=== PATIENT | female | born 2000 | race Two or more races ===

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

== ENCOUNTER 2020-02-29 12:26 | Emergency (ER) | payer SELFPAY ==
[~2020-02-29] VITALS: Ht 162.6 cm; Wt 68.0 kg
[~2020-02-29 12:26] MED LIST changes: +DICY20TA3 PO; +FAMO-63 PO
[2020-02-29 12:33] VITALS: BP 135/89
--- NOTE | 2020-02-29 12:43 | PHYS DOC ---
Past Medical History Past Medical History: No Pertinent History, UTI Past Surgical History: Other Additional Past Surgical Histo: Hernia repair Smoking Status: Never Smoker Alcohol Use: None Drug Use: None General Adult EDM: Chief Complaint: SORE THROAT HPI: HPI: 19-year-old female presents to the emergency department secondary to a scratchy throat. She states that she has a little bit of pain deep in her throat when she swallows. She denies any fever chills or sweats. She is not had any rash. She denies any other upper respiratory symptoms such as a cough. [] Review of Systems: Review of Systems: Constitutional: Denies fever or chills. [] Eyes: Denies change in visual acuity. [] HENT: Per HPI [] Respiratory: Denies cough or shortness of breath. [] Psychiatric: Anxiety [] Heart Score: Risk Factors: Risk Factors: DM, Current or recent (<one month) smoker, HTN, HLP, family history of CAD, obesity. Risk Scores: Score 0 - 3: 2.5% MACE over next 6 weeks - Discharge Home Score 4 - 6: 20.3% MACE over next 6 weeks - Admit for Clinical Observation Score 7 - 10: 72.7% MACE over next 6 weeks - Early Invasive Strategies Allergies: Allergies: Allergies Coded Allergies Type Severity Reaction Last Updated Verified No Known Drug Allergies 02/27/19 No Physical Exam: PE: Constitutional: Well developed, well nourished, no acute distress, non-toxic appearance. [] HENT: Normocephalic, atraumatic, bilateral external ears normal, oropharynx moist, no oral exudates, nose normal. [] Eyes: PERRLA, EOMI, conjunctiva normal, no discharge. [] Neck: Normal range of motion, no tenderness, supple, no stridor. [] Psychologic: Anxious. [] Current Patient Data: Vital Signs: Vital Signs Date Time Temp Pulse Resp B/P (MAP) Pulse Ox O2 Delivery O2 Flow Rate FiO2 02/29/20 12:33 98.4 78 16 135/89 (104) 98 Room Air 98.4 EKG: EKG: [] Radiology/Procedures: Radiology/Procedures: [] Course & Med Decision Making: Course & Med Decision Making Pertinent Labs and Imaging studies reviewed. (See chart for details) [] Dragon Disclaimer: Dragon Disclaimer: This electronic medical record was generated, in whole or in part, using a voice recognition dictation system. Departure Departure Impression: Primary Impression: Sore throat Disposition: 01 HOME, SELF-CARE Condition: STABLE Referrals: CADE RANDLE MD (PCP) Patient Instructions: Sore Throat Additional Instructions: Return to the emergency department with any new or concerning symptoms JALIL HOLLAND DO February 29, 2020 12:43
== END 2020-02-29 12:47 | disposition home or self-care (01) ==
LOC: ER 12:26
DX: J02.9 Acute pharyngitis, unspecified (principal); Z98.890 Other specified postprocedural states
CPT/HCPCS: 99281

== ENCOUNTER 2021-01-02 18:46 | Observation (INO) | payer MEDICAID ==
[2021-01-02 19:27] LABS: BILIRUBIN,URINE NEGATIVE (NEG); CLARITY,URINE CLEAR; COLOR,URINE YELLOW; NITRITE,URINE NEGATIVE (NEG); PROTEIN,URINE 30 mg/dL (NEG-TRACE); UROBILINOGEN,URINE 0.2 mg/dL (0.2 mg/dL)
[2021-01-02 19:32] LABS: BARBITURATES NEG (NEG); BENZODIAZEPINES NEG (NEG); CANNABINOIDS NEG (NEG); COCAINE NEG (NEG); METHADONE NEG (NEG); OPIATES NEG (NEG); PHENCYCLIDINE NEG (NEG)
[2021-01-02 19:34] LABS: AMPHETAMINE/METHAMPHETAMINE NEG (NEG); BACTERIA,URINE MANY /HPF (0-FEW)
[2021-01-02 19:35] LABS: RBC,URINE 0 /HPF (0-2); WBC,URINE OCC /HPF (0-4)
[2021-01-02] MEDS: ONDANSETRON ODT 4 MG TAB.RAPDIS. PO PRN (21:52)
[2021-01-02 22:00] LABS: BASO % 0 % (0-3); EOS % 0 % (0-3); HEMOGLOBIN 12.4 g/dL (12.0-15.5); LYMPH # 1.2 x10^3/uL (1.0-4.8); LYMPH % 11 % (24-48); MEAN CORPUSCULAR HEMOGLOBIN 32 pg (25-35); MEAN CORPUSCULAR HGB CONC 35 g/dL (31-37); MEAN CORPUSCULAR VOLUME 91 fL (79-100); MONO # 0.4 x10^3/uL (0.0-1.1); MONO % 4 % (0-9); NEUT # 9.4 x10^3/uL (1.8-7.7); NEUT % 85 % (31-73); PLATELET COUNT 321 x10^3/uL (140-400); RED BLOOD COUNT 3.94 x10^6/uL (3.50-5.40); RED CELL DISTRIBUTION WIDTH 11.9 % (11.5-14.5); WHITE BLOOD COUNT 11.1 x10^3/uL (4.0-11.0)
[2021-01-02 22:08] LABS: CALCIUM 8.6 mg/dL (8.5-10.1); CREATININE 0.4 mg/dL (0.6-1.0); GFR 203.5; POTASSIUM 3.3 mmol/L (3.5-5.1)
[2021-01-02 22:13] LABS: ALBUMIN 3.3 g/dL (3.4-5.0); ALBUMIN/GLOBULIN RATIO 0.8 (1.0-1.7); TOTAL BILIRUBIN 0.4 mg/dL (0.2-1.0); TOTAL PROTEIN 7.5 g/dL (6.4-8.2)
[2021-01-03] MEDS: IV RINGERS,LACTATED 1000ML 1,000 ML IV PRN ×2 (04:05→06:20)
[2021-01-03 04:26] LABS: BASO % 0 % (0-3); EOS % 0 % (0-3); HEMATOCRIT 32.5 % (36.0-47.0); HEMOGLOBIN 11.5 g/dL (12.0-15.5); LYMPH # 1.8 x10^3/uL (1.0-4.8); LYMPH % 19 % (24-48); MEAN CORPUSCULAR HEMOGLOBIN 33 pg (25-35); MEAN CORPUSCULAR HGB CONC 36 g/dL (31-37); MEAN CORPUSCULAR VOLUME 92 fL (79-100); MONO # 0.8 x10^3/uL (0.0-1.1); MONO % 8 % (0-9); NEUT # 6.6 x10^3/uL (1.8-7.7); NEUT % 72 % (31-73); PLATELET COUNT 273 x10^3/uL (140-400); RED BLOOD COUNT 3.55 x10^6/uL (3.50-5.40); WHITE BLOOD COUNT 9.1 x10^3/uL (4.0-11.0)
[2021-01-03 04:36] LABS: ALBUMIN 2.7 g/dL (3.4-5.0); ALBUMIN/GLOBULIN RATIO 0.7 (1.0-1.7); CALCIUM 8.1 mg/dL (8.5-10.1); CREATININE 0.5 mg/dL (0.6-1.0); GFR 157.3; POTASSIUM 3.5 mmol/L (3.5-5.1); TOTAL BILIRUBIN 0.4 mg/dL (0.2-1.0); TOTAL PROTEIN 6.5 g/dL (6.4-8.2)
[2021-01-03] MEDS: ONDANSETRON ODT 4 MG TAB.RAPDIS. PO PRN (06:20)
== END 2021-01-03 08:00 | disposition home or self-care (01) ==
LOC: 3 SO LND 18:46
PROVIDERS: ADMIT Family Medicine; ATTEND Family Medicine
DX: O21.2 Late vomiting of pregnancy (principal); Z3A.23 23 weeks gestation of pregnancy; Z79.899 Other long term (current) drug therapy
CPT/HCPCS: 36415; 80053; 80307; 81001; 85025; 87086; 96360; 96361; G0378; G0379; J3480; J7120

== ENCOUNTER 2021-01-04 13:21 | Observation (INO) | payer MEDICAID ==
[~2021-01-04] VITALS: Ht 160 cm; Wt 60.3 kg
[2021-01-04 14:00] VITALS: BP 129/78
[2021-01-04 14:27] LABS: BILIRUBIN,URINE SMALL (NEG); CLARITY,URINE CLEAR; NITRITE,URINE NEGATIVE (NEG); PH,URINE 6.5 (<5.0-8.0); PROTEIN,URINE NEGATIVE (NEG-TRACE)
[2021-01-04 14:39] LABS: BACTERIA,URINE MANY /HPF (0-FEW); COLOR,URINE DK YELLOW
[2021-01-04 14:41] LABS: RBC,URINE 0 /HPF (0-2)
--- NOTE | 2021-01-04 15:01 | RAD ---
Obstetric ultrasound limited: Reason for examination: Vomiting over the weekend and now complaining of abdominal pain. 23.5 weeks g estational age. Single viable intrauterine gestation is present with cardiac activity with a rate of 152 bpm. m otion was present. Adequate amniotic fluid is present with amniotic fluid index of 11.3 cm. Placenta is fundal. Fetus is in cephalic presentation. Maternal cervix is 4.2 cm in length and appears to be c losed. Maternal adnexa are not optimally visualized. No gross abnormality seen at the pedal bladder o r kidneys. Biparietal diameter 6 cm corresponding to gestational age of 24 weeks 3 days. Head circumference is 22.07 cm corresponding to gestational age of 24 weeks 1 day. Abdominal circumference is 20.84 cm corresponding to gestational age of 25 weeks 3 days. Femur length is 4.67 cm corresponding to gestational age of 25 weeks 4 days. Estimated weight is 790 g or approximately 1 lb. 12 oz. Gestational age by ultrasound is 24 weeks 6 days with estimated date of confinement of 04/20/2021. IMPRESSION: Single viable intrauterine gestation with a mean gestational age estimated at 24 weeks 6 days with es timated date of confinement of 04/20/2021. This is approximately 8 days larger than gestational age by last menstrual period. Electronically signed by: Oralia Chandler MD (01/04/2021 2:58 PM) [facility]
[2021-01-04 16:35] LABS: POTASSIUM 2.9 mmol/L (3.5-5.1)
[2021-01-04] MEDS: ONDANSETRON ODT 4 MG TAB.RAPDIS. PO PRN ×2 (17:25→23:51)
[2021-01-04] MEDS ORDERED: SODIUM CHLORIDE IV SCH (17:30)
[2021-01-04] MEDS ORDERED: POTASSIUM CHLORIDE 20 MEQ IV SCH (17:30)
[2021-01-04] MEDS ORDERED: POTASSIUM CHLORIDE IV ONE (17:30)
[2021-01-04] MEDS ORDERED: SODIUM CHLORIDE IV ONE (17:30)
[2021-01-04] MEDS ORDERED: DEXTROSE IV SCH (17:30)
[2021-01-04] MEDS ORDERED: DEXTROSE 5% IV ONE (17:30)
[2021-01-04 18:55] VITALS: BP 99/59
[2021-01-04 22:24] LABS: MAGNESIUM 1.9 mg/dL (1.8-2.4); POTASSIUM 3.2 mmol/L (3.5-5.1)
[2021-01-05] MEDS ORDERED: PANTOPRAZOLE 40 MG TABLET.DR. PO ONE (00:15)
[2021-01-05] MEDS ORDERED: POTASSIUM CHLORIDE IV ONE (00:30)
[2021-01-05] MEDS ORDERED: SODIUM CHLORIDE IV ONE (00:30)
[2021-01-05] MEDS ORDERED: DEXTROSE 5% IV ONE (00:30)
[2021-01-05] MEDS ORDERED: cefTRIAXone IV Push 1 GM VIAL. IVP ONE (01:30)
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
[2021-01-05] MEDS: IV RINGERS,LACTATED 1000ML 1,000 ML IV SCH ×2 (02:02→12:14)
--- NOTE | 2021-01-05 02:13 | PDOC1 ---
History and Physical Date of Admission Date of Admission DATE: 01/05/21 TIME: 01:48 Identification/Chief Complaint Chief Complaint Severe left lower quadrant pelvic pain thrughout the night Monday to Monday. Admittied for this problem, along with persistent nausea. Source Source: Patient History of Present Illness History of Present Illness See OB history Current Medications Current Medications Current Medications Ringer's Solution 1,000 ml @ 125 mls/hr Q8H IV ; Start 01/04/21 at 13:45 Potassium Chloride/Dextrose/ Sod Cl 500 ml @ 150 mls/hr Q3H20M IV ; Start 01/04/21 at 17:30; Status Cancel Ondansetron HCl (Zofran Odt) 8 mg PRN Q6HRS PRN PO NAUSEA/VOMITING Last administered on 01/04/21at 23:51; Start 01/04/21 at 16:45 Sodium Chloride 77 meq/Potassium Chloride 20 meq/ Dextrose 529.25 ml @ 150 mls/ hr Q3H32M ONCE IV Last administered on 01/04/21at 17:54; Start 01/04/21 at 17:30; Stop 01/04/21 at 21:01; Status DC Sodium Chloride 77 meq/Potassium Chloride 20 meq/ Dextrose 529.25 ml @ 200 mls/ hr Q2H39M ONCE IV Last administered on 01/05/21at 00:37; Start 01/05/21 at 00:30; Stop 01/05/21 at 03:08 Pantoprazole Sodium (Protonix) 40 mg DAILYAC PO ; Start 01/05/21 at 07:30 Pantoprazole Sodium (Protonix) 40 mg 1X ONCE PO Last administered on 01/05/21at 00:36; Start 01/05/21 at 00:15; Stop 01/05/21 at 00:20; Status DC Active Scripts Active Pepcid (Famotidine) 20 Mg Tablet 20 Mg PO BID 15 Days Dicyclomine Hcl 20 Mg Tablet 1 Tab PO QID 15 Days Zofran (Ondansetron Hcl) 4 Mg Tablet 1 Tab PO Q6HRS Cephalexin 500 Mg Tablet 1 Tab PO BID Ibuprofen 400 Mg Tablet 400 Mg PO PRN Q6HRS PRN Allergies Allergies: Coded Allergies: No Known Drug Allergies (Unverified , 02/27/19) Vitals Vitals Stable, patient afebrile. Labs Labs Laboratory Tests Test 01/04/21 14:20 01/04/21 15:18 01/04/21 17:23 01/04/21 22:08 Urine Collection Type Unknown Urine Color Dk yellow Urine Clarity Clear Urine pH 6.5 (<5.0-8.0) Urine Specific [place] 1.020 (1.000-1.030) Urine Protein Negative mg/dL (NEG-TRACE) Urine Glucose (UA) Negative mg/dL (NEG) Urine Ketones (Stick) >=80 mg/dL (NEG) Urine Blood Negative (NEG) Urine Nitrite Negative (NEG) Urine Bilirubin Small (NEG) Urine Urobilinogen Dipstick 1.0 mg/dL (0.2 mg/dL) Urine Leukocyte Esterase Small (NEG) Urine RBC 0 /HPF (0-2) Urine WBC 1-4 /HPF (0-4) Urine Squamous Epithelial Cells Many /LPF Urine Bacteria Many /HPF (0-FEW) Urine Mucus Marked /LPF Sodium Level 137 mmol/L (136-145) Potassium Level 2.9 mmol/L (3.5-5.1) 3.2 mmol/L (3.5-5.1) Chloride Level 102 mmol/L (98-107) Carbon Dioxide Level 22 mmol/L (21-32) Anion Gap 13 (6-14) Glucose (Fingerstick) 84 mg/dL (70-99) Magnesium Level 1.9 mg/dL (1.8-2.4) Laboratory Tests Test 01/04/21 14:20 01/04/21 15:18 01/04/21 17:23 01/04/21 22:08 Urine Collection Type Unknown Urine Color Dk yellow Urine Clarity Clear Urine pH 6.5 (<5.0-8.0) Urine Specific Post 1.020 (1.000-1.030) Urine Protein Negative mg/dL (NEG-TRACE) Urine Glucose (UA) Negative mg/dL (NEG) Urine Ketones (Stick) >=80 mg/dL (NEG) Urine Blood Negative (NEG) Urine Nitrite Negative (NEG) Urine Bilirubin Small (NEG) Urine Urobilinogen Dipstick 1.0 mg/dL (0.2 mg/dL) Urine Leukocyte Esterase Small (NEG) Urine RBC 0 /HPF (0-2) Urine WBC 1-4 /HPF (0-4) Urine Squamous Epithelial Cells Many /LPF Urine Bacteria Many /HPF (0-FEW) Urine Mucus Marked /LPF Sodium Level 137 mmol/L (136-145) Potassium Level 2.9 mmol/L (3.5-5.1) 3.2 mmol/L (3.5-5.1) Chloride Level 102 mmol/L (98-107) Carbon Dioxide Level 22 mmol/L (21-32) Anion Gap 13 (6-14) Glucose (Fingerstick) 84 mg/dL (70-99) Magnesium Level 1.9 mg/dL (1.8-2.4) Images Images US of uterus reveals viable 24 week fetus with good heart tones and fluid.- Single viable intrauterine gestation with a mean gestational age estimated at 24 weeks 6 days with estimated date of confinement of 04/20/2021. Placenta is fundal and healthy in appearance. VTE Prophylaxis Ordered VTE Prophylaxis Devices: Yes VTE Pharmacological Prophylaxi: No Assessment/Plan Assessment/Plan 1. IUP in second trimester EGA about 24 weeks. 2. Hypokalemia probably causing the severe lower abdominal pain due to muscle cramp- now resolved with improved potassium.3.persistent nausea and vomiting/hyperemesis most likely the cause fo the hypokalemia.4. She now has leucocytes on her UA, many bacteria but neg nitrates.- this may be early bladder infection causing the increased nausea and vomiting. Plan: 1. Rocephin one gram ordered pending urine culture. 2. Iv hydration and IV potassium supplement infusing. 3. Will recheck electrolytes. Continue Zofran and IV fluids. If she remains stable throughout the night she may be discharged to her mother's home for 3-4 days. She is to see me in office in one week. CADE RANDLE MD Jan 05, 2021 02:13
[2021-01-05] MEDS: ONDANSETRON ODT 4 MG TAB.RAPDIS. PO PRN ×2 (05:55→11:44)
[2021-01-05] MEDS ORDERED: PANTOPRAZOLE 40 MG TABLET.DR. PO SCH (07:30)
[2021-01-05] MEDS ORDERED: ACETAMINOPHEN 325 MG TABLET. PO PRN (12:30)
[2021-01-05 13:20] VITALS: BP 117/61
== END 2021-01-05 14:10 | disposition home or self-care (01) ==
LOC: 3 SO LND 13:21
PROVIDERS: ADMIT Family Medicine; ATTEND Family Medicine
DX: O21.2 Late vomiting of pregnancy (principal); O26.892 Other specified pregnancy related conditions, second trimester; E87.6 Hypokalemia; R10.32 Left lower quadrant pain; Z3A.24 24 weeks gestation of pregnancy
CPT/HCPCS: 36415; 76815; 80051; 81001; 82962; 83735; 84132; 87086; 96361; 96365; 96366; 96375; G0378; G0379; J0696; J3480; J7060; J7120

== ENCOUNTER 2021-01-05 21:19 | Observation (INO) | payer MEDICAID ==
[2021-01-05 13:20] VITALS: BP 117/61
[2021-01-05] MEDS ORDERED: IV RINGERS,LACTATED 1000ML 1,000 ML IV SCH (21:30)
[2021-01-05 21:54] LABS: BILIRUBIN,URINE NEGATIVE (NEG); CLARITY,URINE CLEAR; COLOR,URINE YELLOW; NITRITE,URINE NEGATIVE (NEG); PH,URINE 7.5 (<5.0-8.0); PROTEIN,URINE NEGATIVE (NEG-TRACE)
[2021-01-05 22:02] LABS: BARBITURATES NEG (NEG); BENZODIAZEPINES NEG (NEG); CANNABINOIDS NEG (NEG); COCAINE NEG (NEG); METHADONE NEG (NEG); OPIATES NEG (NEG); PHENCYCLIDINE NEG (NEG); RBC,URINE 0 /HPF (0-2)
[2021-01-05 22:03] LABS: AMPHETAMINE/METHAMPHETAMINE NEG (NEG); BACTERIA,URINE FEW /HPF (0-FEW)
== END 2021-01-05 23:48 | disposition home or self-care (01) ==
LOC: 3 SO LND 21:19
PROVIDERS: ADMIT Family Medicine; ATTEND Family Medicine
DX: O26.892 Other specified pregnancy related conditions, second trimester (principal); R10.12 Left upper quadrant pain; R10.32 Left lower quadrant pain; R42 Dizziness and giddiness; Z79.899 Other long term (current) drug therapy; Z3A.23 23 weeks gestation of pregnancy; Y04.0XXA Assault by unarmed brawl or fight, initial encounter; Y93.89 Activity, other specified; Y92.89 Other specified places as the place of occurrence of the external cause; Y99.8 Other external cause status
CPT/HCPCS: 59025; 80307; 81001; 87086; G0378; G0379

== ENCOUNTER 2021-01-05 23:50 | Emergency (ER) | payer MEDICAID ==
[~2021-01-05] VITALS: Ht 160 cm; Wt 63.6 kg
--- NOTE | 2021-01-06 01:04 | RAD ---
OB ULTRASOUND, LIMITED Clinical Indication: Reason: KICKED TO [facility] Comparison: None. Technique: Multiple grayscale images, color Doppler, and M-mode images of the uterus are obtained. Findings: There is a single intrauterine gestation in vertex presentation. The placenta is anterior and fundal in location without evidence of placenta previa. The amount of amniotic fluid appears appropriate. A mniotic fluid index is 13.1 cm. Cervix is not visualized. Biometrical data: BPD = 6.2 cm for 25 weeks 2 days. HC = 22.5 cm for 24 weeks 4 days. AC = 21.1 cm for 25 weeks 4 days. FL = 4.5 cm for 25 weeks 0 days. HC/AC ratio = 1.07. Overall, the estimated sonographic gestational age is 25 weeks and 1 day for an estimated date of del shahana of April 20, 2021. The estimated date of delivery provided by the last menstrual period is April 28, 2021. Estimated weight is 791 +/- 117 grams. The estimated heart rate is 145 beats per minute. A complete anatomic survey is not performed. The maternal ovaries are not identified in the adn exa due to overlying bowel gas. Impression: 1. Single live intrauterine gestation with estimated sonographic gestational age of 25 weeks and 1 d ay. 2. Amniotic fluid index is normal. Electronically signed by: Delroy Fuller MD (01/06/2021 1:01 AM) [facility]
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
[2021-01-06 01:36] VITALS: BP 130/60
== END 2021-01-06 01:50 | disposition home or self-care (01) ==
LOC: ER 23:50
DX: O26.892 Other specified pregnancy related conditions, second trimester (principal); F19.10 Other psychoactive substance abuse, uncomplicated; R10.32 Left lower quadrant pain; Z98.890 Other specified postprocedural states; Z3A.25 25 weeks gestation of pregnancy
CPT/HCPCS: 76815; 99285

== ENCOUNTER 2021-03-09 10:28 | Observation (INO) | payer MEDICAID ==
[2021-03-09 11:15] LABS: BILIRUBIN,URINE NEGATIVE (NEG); CLARITY,URINE CLEAR; COLOR,URINE YELLOW; NITRITE,URINE NEGATIVE (NEG); PH,URINE 7.5 (<5.0-8.0); PROTEIN,URINE NEGATIVE (NEG-TRACE); UROBILINOGEN,URINE 0.2 mg/dL (0.2 mg/dL)
[2021-03-09 11:23] LABS: RBC,URINE OCC /HPF (0-2)
[2021-03-09 11:24] LABS: BACTERIA,URINE FEW /HPF (0-FEW)
[2021-03-09 11:45] VITALS: BP 124/85
[2021-03-09] MEDS ORDERED: TERBUTALINE 1 MG/ML VIAL. SQ ONE (11:45)
[2021-03-09] MEDS: IV RINGERS,LACTATED 1000ML 1,000 ML IV PRN ×2 (11:59→18:08)
--- NOTE | 2021-03-09 18:40 | RAD ---
STUDY: Complete renal sonogram INDICATION: Right-sided pain. 33 weeks . COMPARISON: None. TECHNIQUE: Real-time grayscale and color Doppler sonographic evaluation of both kidneys. The bladder was also evaluated. FINDINGS: Right kidney: The right kidney measures 10.8 cm in length. Cortical thickness and echogenicity is wit hin normal limits. Mild hydronephrosis with the renal pelvis distended at up to 2.2 cm. No nephrolith iasis is identified noting that the entirety of the ureter is not able to be visualized. Left kidney: Measures 12.5 cm in length. Cortical thickness and echogenicity is within normal limits. No significant hydronephrosis with the renal pelvis measuring 1.6 cm. Bladder: Not evaluated. Miscellaneous: None. IMPRESSION: 1. Mild hydronephrosis on the right. No obstructing stone is identified. No significant intrarenal c ollecting system dilatation on the left. 2. Unremarkable renal parenchyma. Electronically signed by: TYESHA BOWDEN MD (03/09/2021 6:37 PM) [facility]
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
--- NOTE | 2021-03-09 19:41 | PDOC3 ---
OB DISCHARGE SUMMARY DATE OF ADMISSION: 03/09/2021 DATE OF DISCHARGE: 03/09/2021 REASON FOR ADMISSION: Observation/evaluation (for abdominal pain with initiall contractions, but then major concern was the right sided back pain. labor ruled out.) PROCEDURES: Ultrasound (see OB history) PROBLEM LIST AT DISCHARGE 1. Right flank pain and right abdominal pain. 2. right kidney hydronephrosis. DISCHARGE DIAGNOSIS: Others (1. right kidney hydronephrosis. 2. right flank p ain and right abdominal pain. 3. Mikey Miller) HOSPITAL COURSE Patient was monitored for labor initially but as the day progressed it became apparent that the focus of her pain was in her right flank and right abdomen. Her cervical recheck by me was unchanged- soft, external os fingertip , internal os closed, and cervix posterior and slightly right of center. Tenderness was in right flank and towards the abdomen. But there was intense tenderness with percussion of right CVA. UA had no hematuria. But I the amount of r ight Cva tenderness seemed excessive even for my low pain tolera nce patient. I ordered an US of the kidneys and the right kidney has mild hydronephrosis with the renal pelvis distended at up to 2.2 cm. No nephrolithiasis was identified noting that the entirety of the ureter was not able to be visualized. Due to her present exam and the localization of her painto the right flnak with significant CVA tenderness there, and none ont he left, and also tenderness along the right upper abdominal area with palpation I suspect that the problem is due to the hydronephrosis. At 32-33 weeks I would not think that the would be causing this painful problem. Would like consult with urology but no urologist available at this time at this facility. i discussed with Dr. Connor who has agreed to accept patient in transfer to [facility] where a urology consult can be obtained. CONDITION AT DISCHARGE Aside from the pain issue, patient and fetus are doing well. FHT are reactive and doing well. Fetus has been moving throughout the day. Patient's vital signs stable and was able to eat a small snack size meal a couple of hours prior to transfer to [facility]. CADE RANDLE MD Mar 09, 2021 19:41
== END 2021-03-09 19:03 | disposition short-term general hospital (02) ==
LOC: 3 SO LND 10:28
PROVIDERS: ADMIT Family Medicine; ATTEND Family Medicine
DX: O26.893 Other specified pregnancy related conditions, third trimester (principal); R10.9 Unspecified abdominal pain; Z3A.33 33 weeks gestation of pregnancy
CPT/HCPCS: 76770; 81001; 87086; 96360; 96361; 96372; G0378; G0379; J3105; J7120

== ENCOUNTER 2021-04-01 14:21 | Observation (INO) | payer MEDICAID ==
[2021-04-01] MEDS ORDERED: IV RINGERS,LACTATED 1000ML 1,000 ML IV PRN (15:00)
[2021-04-01 15:18] LABS: BILIRUBIN,URINE NEGATIVE (NEG); CLARITY,URINE CLEAR; COLOR,URINE YELLOW; NITRITE,URINE NEGATIVE (NEG); PH,URINE 6.5 (<5.0-8.0); PROTEIN,URINE NEGATIVE (NEG-TRACE)
[2021-04-01 15:32] LABS: BACTERIA,URINE MODERATE /HPF (0-FEW); RBC,URINE 0 /HPF (0-2)
[2021-04-01] MEDS ORDERED: ONDANSETRON ODT 4 MG TAB.RAPDIS. PO PRN (16:00)
[2021-04-01] MEDS: oxyCODONE/APAP 5/325 1 TAB TABLET PO PRN ×2 (16:49→19:36)
--- NOTE | 2021-04-01 18:06 | RAD ---
US RENAL BILAT History: Reason: Check for worsening hydronephrosis. / Spl. Instructions: / History: Comparison: March 09, 2021 Procedure: Transabdominal ultrasound images are obtained of the kidneys and bladder. Findings: Right kidney: measures 14.6 x 5.6 x 6.8 cm. Normal cortical echotexture. Corticomedullary differenti ation is preserved. Moderate hydronephrosis with renal pelvis measuring 3.5 cm compared to 2.2 cm pre viously. Left kidney: measures 13.5 x 5.4 x 6.9 cm. Normal cortical echotexture. Corticomedullary differentia tion is preserved. Mild left hydronephrosis with renal pelvis measuring 2.3 cm compared to 1.67 m pre viously. Urinary bladder: No urinary bladder wall thickening. Bilateral ureteral jets not identified during ti me of imaging. IMPRESSION: 1. Increased moderate right and mild left hydronephrosis. Electronically signed by: Maulik Lynn DO (04/01/2021 6:04 PM) [facility]
== END 2021-04-01 20:23 | disposition home or self-care (01) ==
LOC: 3 SO LND 14:21
PROVIDERS: ADMIT Family Medicine; ATTEND Family Medicine
DX: O99.891 Other specified diseases and conditions complicating pregnancy (principal); M54.9 Dorsalgia, unspecified; O62.9 Abnormality of forces of labor, unspecified; Z3A.36 36 weeks gestation of pregnancy; Z79.899 Other long term (current) drug therapy
CPT/HCPCS: 59025; 76770; 81001; 87086; G0378; G0379

== ENCOUNTER 2021-04-09 18:28 | Observation (INO) | payer MEDICAID ==
[~2021-04-09] VITALS: Ht 154.9 cm; Wt 75.0 kg
[2021-04-09] MEDS ORDERED: hydrOXYzine 25 MG TABLET PO PRN (19:30)
[2021-04-09] MEDS ORDERED: oxyCODONE/APAP 10/325 1 TAB TABLET PO PRN (19:45)
[2021-04-09] MEDS ORDERED: IV RINGERS,LACTATED 1000ML 1,000 ML IV PRN (19:45)
[2021-04-09 19:50] LABS: BILIRUBIN,URINE NEGATIVE (NEG); CLARITY,URINE CLEAR; COLOR,URINE YELLOW; NITRITE,URINE NEGATIVE (NEG); PH,URINE 6.5 (<5.0-8.0); PROTEIN,URINE NEGATIVE (NEG-TRACE); UROBILINOGEN,URINE 0.2 mg/dL (0.2 mg/dL)
[2021-04-09 19:57] LABS: AMORPHOUS SEDIMENT,UR PRESENT /HPF; BACTERIA,URINE FEW /HPF (0-FEW)
[2021-04-09 19:59] LABS: RBC,URINE RARE /HPF (0-2)
== END 2021-04-09 23:50 | disposition home or self-care (01) ==
LOC: 3 SO LND 18:28
PROVIDERS: ADMIT Family Medicine; ATTEND Family Medicine
DX: O62.9 Abnormality of forces of labor, unspecified (principal); O99.891 Other specified diseases and conditions complicating pregnancy; M54.9 Dorsalgia, unspecified; O26.893 Other specified pregnancy related conditions, third trimester; R51.9 Headache, unspecified; R11.0 Nausea; Z3A.37 37 weeks gestation of pregnancy
CPT/HCPCS: 59025; 81001; 87086; G0378; G0379

== ENCOUNTER 2021-04-30 19:30 | Inpatient (IN) | payer MEDICAID ==
[~2021-04-30] VITALS: Ht 162.6 cm; Wt 73.6 kg
[2021-04-30 20:15] VITALS: BP 126/85
[2021-04-30] MEDS ORDERED: fentaNYL PF VIAL 100 MCG/2 ML VIAL IVP PRN (20:15)
[2021-04-30] MEDS ORDERED: OXYTOCIN 30 UNIT/500 ML PREMIX 500 ML IV PRN ×2 (20:15)
[2021-04-30] MEDS ORDERED: LIDOCAINE 1% PF 30 ML VIAL. INJ PRN (20:15)
[2021-04-30] MEDS ORDERED: ONDANSETRON PF 4 MG/2 ML VIAL. IVP PRN (20:15)
[2021-04-30] MEDS ORDERED: ACETAMINOPHEN 325 MG TABLET. PO PRN (20:15)
[2021-04-30] MEDS ORDERED: MAG HYDROX/ALUMINUM HYD/SIMETH 30 ML ORAL.SUSP PO PRN (20:15)
[2021-04-30] MEDS ORDERED: 0.9 % SODIUM CHLORIDE 10 ML DISP.SYRIN. IV PRN (20:15)
[2021-04-30] MEDS ORDERED: TERBUTALINE 1 MG/ML VIAL. SQ PRN (20:15)
[2021-04-30] MEDS ORDERED: IBUPROFEN 400 MG TABLET. PO PRN (20:15)
[2021-04-30] MEDS ORDERED: ZOLPIDEM 5 MG TABLET. PO PRN (20:15)
[2021-04-30 20:47] LABS: BASO % 0 % (0-3); EOS # 0.1 x10^3/uL (0.0-0.7); EOS % 1 % (0-3); HEMATOCRIT 32.4 % (36.0-47.0); HEMOGLOBIN 10.8 g/dL (12.0-15.5); LYMPH # 1.5 x10^3/uL (1.0-4.8); LYMPH % 17 % (24-48); MEAN CORPUSCULAR HEMOGLOBIN 27 pg (25-35); MEAN CORPUSCULAR HGB CONC 33 g/dL (31-37); MEAN CORPUSCULAR VOLUME 80 fL (79-100); MONO # 0.6 x10^3/uL (0.0-1.1); MONO % 7 % (0-9); NEUT # 6.5 x10^3/uL (1.8-7.7); NEUT % 75 % (31-73); PLATELET COUNT 329 x10^3/uL (140-400); RED BLOOD COUNT 4.07 x10^6/uL (3.50-5.40); RED CELL DISTRIBUTION WIDTH 14.6 % (11.5-14.5); WHITE BLOOD COUNT 8.8 x10^3/uL (4.0-11.0)
[2021-04-30 20:56] LABS: BARBITURATES NEG (NEG); BENZODIAZEPINES NEG (NEG); CANNABINOIDS NEG (NEG); COCAINE NEG (NEG); METHADONE NEG (NEG); OPIATES NEG (NEG); PHENCYCLIDINE NEG (NEG)
[2021-04-30 20:57] LABS: AMPHETAMINE/METHAMPHETAMINE NEG (NEG)
[2021-04-30] MEDS: IV RINGERS,LACTATED 1000ML 1,000 ML IV SCH (20:58)
[2021-04-30 21:08] LABS: BILIRUBIN,URINE NEGATIVE (NEG); CLARITY,URINE CLEAR; COLOR,URINE YELLOW
[2021-04-30 21:09] LABS: BACTERIA,URINE FEW /HPF (0-FEW); NITRITE,URINE NEGATIVE (NEG); PROTEIN,URINE NEGATIVE (NEG-TRACE); RBC,URINE RARE /HPF (0-2); UROBILINOGEN,URINE 0.2 mg/dL (0.2 mg/dL)
[2021-05-01] MEDS: IV RINGERS,LACTATED 1000ML 1,000 ML IV SCH ×4 (02:40→20:06)
[2021-05-01] MEDS: fentaNYL PF VIAL 100 MCG/2 ML VIAL IVP PRN ×2 (02:41→12:58)
--- NOTE | 2021-05-01 16:24 | PDOC1 ---
OB - History Hx of Present Care: Good Care Ultrasounds: Normal mid trimester US Abnormal Ultrasound Findings: Patient has also had abdomional/pelvic US done during March, last one , due to sever back and abdominal pain that showed right hydronephrosis. Obstetrical Complications: Other (Back pain severe with severe abdominal pain requiring admission for pain control x 5, and at one point transfer to [facility] for urology evaluation for possible stone- ruled out.) Other Concerns: She has had problem with nausea throughout the and has been on Zofran off and on throughout the . There are financial concerns as well, but patient has a very supportive family and her parents will be there if she needs them. Past Family/Social History * Past Medical, Surgical, Family and Obstetric Histories reviewed from chart. Blood Type: O+ Rubella: Immune RPR/VDRL: Negative GBS Status: Negative HBsAG: Negative CADE RANDLE MD May 01, 2021 16:24
[2021-05-01] MEDS ORDERED: CITRIC ACID/SODIUM CITRATE 30 ML SOLUTION. PO ONE (17:00)
[2021-05-01] MEDS ORDERED: OXYTOCIN 10 UNIT/ML VIAL. ONE ×2 (17:07)
[2021-05-01] MEDS ORDERED: PHENYLEPHRINE in 0.9% NACL PF 1 MG/10 ML SYRINGE. IV ONE (17:08)
[2021-05-01] MEDS ORDERED: ePHEDrine PF IN SALINE 50 MG/10 ML SYRINGE. IV ONE (17:08)
[2021-05-01] MEDS ORDERED: FAMOTIDINE 20 MG/2 ML VIAL ONE (17:08)
[2021-05-01] MEDS ORDERED: ONDANSETRON PF 4 MG/2 ML VIAL. ONE (17:08)
[2021-05-01] MEDS ORDERED: fentaNYL PF VIAL 100 MCG/2 ML VIAL ONE (17:08)
[2021-05-01] MEDS ORDERED: MORPHINE PF 10 MG/10 ML AMPUL. ONE (17:09)
--- NOTE | 2021-05-01 17:27 | RAD ---
EXAM: US OB Limited CLINICAL HISTORY: Reason: Unsure of position, pt in active labor, 6-7 cm dilated / Spl. Instruc tions: / History: . COMPARISON: 01/07/2020 TECHNIQUE: Limited transabdominal ultrasound of the uterus was performed. FINDINGS: Within the uterus is a single live intrauterine gestation. heart rate was not obtained secondar y to the limited nature of the exam. measurements as follows: BPD: 10.1 cm corresponding to 41 weeks 4 days Head circumference: 34.3 cm corresponding to 39 weeks 4 days Abdominal circumference: 38.1 cm corresponding to 41 weeks 0 days Femur length: 7.6 cm corresponding to 38 weeks 5 days Estimated weight: 4303 g Gestational age by ultrasound: 40 weeks 0 days KENNETH: 9.6 Fetus is in breech position No free fluid identified in the pelvis. IMPRESSION: Fetus is in breech position. measurements as described above. Electronically signed by: Beth Mandel MD (05/01/2021 5:24 PM) [facility]
[2021-05-01] MEDS ORDERED: METHYLERGONOVINE MALEATE 0.2 MG/ML VIAL. IM ONE ×2 (19:03→19:10)
--- NOTE | 2021-05-01 19:17 | OP ---
DATE OF SURGERY: 05/01/2021 INDICATIONS: This patient is 20 years old female who is a primigravida, EDC 04/28/2021, was seen by Dr. Morrison for her care and the patient was admitted to the hospital with a history of having contractions and she was observed over a period of time and there was very slow progress and she had a limited ultrasound during the time of the labor and it was noted she had a double footling breech presentation. Hence, the patient was seen in consult and scheduled immediately for a lower segment section. DESCRIPTION OF PROCEDURE: Under spinal block, the patient was placed in a dorsal supine position. Rose catheter introduced into bladder for continuous bladder drainage and the lower abdomen was prepped and draped in the usual manner. Pfannenstiel incision was made. Abdomen opened in layers and the bladder flap peritoneum was dissected. Bladder was pushed way down the lower segment of the uterus. An incision was made on the uterus and is extended on either side using index fingers. Amniotomy done. There was meconium stained fluid seen. Double footling assisted breech delivery was done by , a live female infant weighing 7 pound 12 ounces, delivered at 1812 hours with the score of 7 and 9 without any problems. There was a cord around the neck of the baby twice, which was released at the time of the delivery and baby was suctioned and baby was given to the nursery for further care. The cord blood was taken. Placenta removed. No hemorrhage noted. She did receive Pitocin after delivery of the placenta. Uterus sutured in 2 layers using #1 chromic catgut sutures and reperitonealization was done with continuous 0 chromic catgut sutures and the bladder flap peritoneum was also closed with continuous #0 chromic catgut sutures. Uterus was placed in the abdominal cavity. All the blood clots in the pelvis were removed. Abdomen closed in layers using continuous 0 chromic catgut sutures for the peritoneum, the muscle, the fascia, 3-0 plain continuous sutures applied for subcutaneous tissue, 3-0 Vicryl subcutaneous sutures were placed. A pressure dressing was given. The patient sent to the recovery room in good condition. No complications encountered at time of the procedure. Estimated blood loss about 500 mL. Baby is referred to education associate for further care and treatment. The surgery was assisted by Dr. Morrison and no complications at this time. CHEIKH/JENNIFER DR: Srinivas TID: [id number]
--- NOTE | 2021-05-01 19:57 | PDOC ---
OB Progress Note Date of Service 05/01/2021 Time of Evaluation Noon Problem List Problems Medical Problems: (1) Abdominal wall pain in right flank Status: Acute (2) Hydronephrosis of right kidney Status: Acute Notes Patient admitted at 2013 last night for induction of labor due to being term plus and due to the severe right sided back pain and abdomional pain she has been experienceing for about 2 months, resulting in at least 3 admissions in the last 5 weeks. On admission last night she was dilated to 3 cm and was 70% and presenting part was at -3. Pitocin was started at 2058 last night. 04/30/2021. OB VITAL SIGNS: Temperature (97.7), Blood Pressure (137/79), Pulse (101), O2 Sat (98%) Lab Laboratory Tests Test 04/30/21 20:05 White Blood Count 8.8 x10^3/uL (4.0-11.0) Red Blood Count 4.07 x10^6/uL (3.50-5.40) Hemoglobin 10.8 g/dL (12.0-15.5) Hematocrit 32.4 % (36.0-47.0) Mean Corpuscular Volume 80 fL (79-100) Mean Corpuscular Hemoglobin 27 pg (25-35) Mean Corpuscular Hemoglobin Concent 33 g/dL (31-37) Red Cell Distribution Width 14.6 % (11.5-14.5) Platelet Count 329 x10^3/uL (140-400) Neutrophils (%) (Auto) 75 % (31-73) Lymphocytes (%) (Auto) 17 % (24-48) Monocytes (%) (Auto) 7 % (0-9) Eosinophils (%) (Auto) 1 % (0-3) Basophils (%) (Auto) 0 % (0-3) Neutrophils # (Auto) 6.5 x10^3/uL (1.8-7.7) Lymphocytes # (Auto) 1.5 x10^3/uL (1.0-4.8) Monocytes # (Auto) 0.6 x10^3/uL (0.0-1.1) Eosinophils # (Auto) 0.1 x10^3/uL (0.0-0.7) Basophils # (Auto) 0.0 x10^3/uL (0.0-0.2) Urine Collection Type Unknown Urine Color Yellow Urine Clarity Clear Urine pH 7.0 (<5.0-8.0) Urine Specific [place] 1.015 (1.000-1.030) Urine Protein Negative mg/dL (NEG-TRACE) Urine Glucose (UA) Negative mg/dL (NEG) Urine Ketones (Stick) Negative mg/dL (NEG) Urine Blood Trace (NEG) Urine Nitrite Negative (NEG) Urine Bilirubin Negative (NEG) Urine Urobilinogen Dipstick 0.2 mg/dL (0.2 mg/dL) Urine Leukocyte Esterase Moderate (NEG) Urine RBC Rare /HPF (0-2) Urine WBC 11-20 /HPF (0-4) Urine Squamous Epithelial Cells Many /LPF Urine Bacteria Few /HPF (0-FEW) Urine Mucus Slight /LPF Urine Opiates Screen Neg (NEG) Urine Methadone Screen Neg (NEG) Urine Barbiturates Neg (NEG) Urine Phencyclidine Screen Neg (NEG) Urine Amphetamine/Methamphetamine Neg (NEG) Urine Benzodiazepines Screen Neg (NEG) Urine Cocaine Screen Neg (NEG) Urine Cannabinoids Screen Neg (NEG) Urine Ethyl Alcohol Neg (NEG) Treponema pallidum Antibody Nonreactive (Nonreactive) SARS-CoV-2 RNA (LEXY) Negative (Negative) SARS-CoV-2 Antigen (Rapid) Negative (NEGATIVE) Laboratory Tests Test 04/30/21 20:05 White Blood Count 8.8 x10^3/uL (4.0-11.0) Red Blood Count 4.07 x10^6/uL (3.50-5.40) Hemoglobin 10.8 g/dL (12.0-15.5) Hematocrit 32.4 % (36.0-47.0) Mean Corpuscular Volume 80 fL (79-100) Mean Corpuscular Hemoglobin 27 pg (25-35) Mean Corpuscular Hemoglobin Concent 33 g/dL (31-37) Red Cell Distribution Width 14.6 % (11.5-14.5) Platelet Count 329 x10^3/uL (140-400) Neutrophils (%) (Auto) 75 % (31-73) Lymphocytes (%) (Auto) 17 % (24-48) Monocytes (%) (Auto) 7 % (0-9) Eosinophils (%) (Auto) 1 % (0-3) Basophils (%) (Auto) 0 % (0-3) Neutrophils # (Auto) 6.5 x10^3/uL (1.8-7.7) Lymphocytes # (Auto) 1.5 x10^3/uL (1.0-4.8) Monocytes # (Auto) 0.6 x10^3/uL (0.0-1.1) Eosinophils # (Auto) 0.1 x10^3/uL (0.0-0.7) Basophils # (Auto) 0.0 x10^3/uL (0.0-0.2) Urine Collection Type Unknown Urine Color Yellow Urine Clarity Clear Urine pH 7.0 (<5.0-8.0) Urine Specific [place] 1.015 (1.000-1.030) Urine Protein Negative mg/dL (NEG-TRACE) Urine Glucose (UA) Negative mg/dL (NEG) Urine Ketones (Stick) Negative mg/dL (NEG) Urine Blood Trace (NEG) Urine Nitrite Negative (NEG) Urine Bilirubin Negative (NEG) Urine Urobilinogen Dipstick 0.2 mg/dL (0.2 mg/dL) Urine Leukocyte Esterase Moderate (NEG) Urine RBC Rare /HPF (0-2) Urine WBC 11-20 /HPF (0-4) Urine Squamous Epithelial Cells Many /LPF Urine Bacteria Few /HPF (0-FEW) Urine Mucus Slight /LPF Urine Opiates Screen Neg (NEG) Urine Methadone Screen Neg (NEG) Urine Barbiturates Neg (NEG) Urine Phencyclidine Screen Neg (NEG) Urine Amphetamine/Methamphetamine Neg (NEG) Urine Benzodiazepines Screen Neg (NEG) Urine Cocaine Screen Neg (NEG) Urine Cannabinoids Screen Neg (NEG) Urine Ethyl Alcohol Neg (NEG) Treponema pallidum Antibody Nonreactive (Nonreactive) SARS-CoV-2 RNA (LEXY) Negative (Negative) SARS-CoV-2 Antigen (Rapid) Negative (NEGATIVE) Medications Current Medications Sodium Chloride (Normal Saline Flush) 3 ml QSHIFT PRN IV AFTER MEDS AND BLOOD DRAWS; Start 04/30/21 at 20:15 Ringer's Solution 1,000 ml @ 125 mls/hr Q8H IV Last administered on 05/01/21at 14:08; Start 04/30/21 at 20:15 Fentanyl Citrate (Fentanyl 2ml Vial) 100 mcg PRN Q30MIN PRN IVP Severe pain Last administered on 05/01/21at 12:58; Start 04/30/21 at 20:15 Fentanyl Citrate (Fentanyl 2ml Vial) 50 mcg PRN Q10MIN PRN IVP Labor pain; Start 04/30/21 at 20:15 Acetaminophen (Tylenol) 650 mg PRN Q6HRS PRN PO MILD PAIN / TEMP > 100.3'F; Start 04/30/21 at 20:15 Ondansetron HCl (Zofran) 4 mg PRN Q4HRS PRN IVP NAUSEA/VOMITING; Start 04/30/21 at 20:15 Al Hydroxide/Mg Hydroxide (Mylanta Plus Xs) 30 ml PRN Q4HRS PRN PO HEARTBURN / GAS; Start 04/30/21 at 20:15 Zolpidem Tartrate (Ambien) 5 mg PRN QHS PRN PO INSOMNIA; Start 04/30/21 at 20:15 Terbutaline Sulfate (Brethine) 0.25 mg 1X PRN PRN SQ SEE COMMENTS; Start 04/30/21 at 20:15; Stop 05/01/21 at 20:14 Lidocaine HCl (Xylocaine 1% Pf 30ml Vial) 30 ml 1X PRN PRN INJ SEE COMMENTS; Start 04/30/21 at 20:15; Stop 05/02/21 at 20:14 Oxytocin 500 ml @ 0 mls/hr CONT PRN IV SEE I/O RECORD Last administered on 04/30/21at 20:59; Start 04/30/21 at 20:15 Oxytocin 500 ml @ 0 mls/hr CONT PRN PRN IV Post delivery bleeding Last administered on 05/01/21at 19:05; Start 04/30/21 at 20:15 Ibuprofen (Motrin) 800 mg PRN Q6HRS PRN PO INFLAMMATION; Start 04/30/21 at 20:15 Cefazolin Sodium/ Dextrose 50 ml @ 100 mls/hr 1X ONCE IV Last administered on 05/01/21at 17:35; Start 05/01/21 at 17:00; Stop 05/01/21 at 17:29; Status DC Citric Acid/ Sodium Citrate (Bicitra) 30 ml 1X ONCE PO Last administered on 05/01/21at 17:34; Start 05/01/21 at 17:00; Stop 05/01/21 at 17:01; Status DC Oxytocin (Pitocin) 10 unit STK-MED ONCE .ROUTE ; Start 05/01/21 at 17:07; Stop 05/01/21 at 17:07; Status DC Oxytocin (Pitocin) 10 unit STK-MED ONCE .ROUTE ; Start 05/01/21 at 17:07; Stop 05/01/21 at 17:07; Status DC Ephedrine Sulfate (ePHEDrine PF IN SALINE SYRINGE) 50 mg STK-MED ONCE IV ; Start 05/01/21 at 17:08; Stop 05/01/21 at 17:08; Status DC Phenylephrine HCl (PHENYLEPHRINE in 0.9% NACL PF) 1 mg STK-MED ONCE IV ; Start 05/01/21 at 17:08; Stop 05/01/21 at 17:08; Status DC Famotidine (Pepcid Vial) 20 mg STK-MED ONCE .ROUTE ; Start 05/01/21 at 17:08; Stop 05/01/21 at 17:08; Status DC Ondansetron HCl (Zofran) 4 mg STK-MED ONCE .ROUTE ; Start 05/01/21 at 17:08; Stop 05/01/21 at 17:08; Status DC Fentanyl Citrate (Fentanyl 2ml Vial) 100 mcg STK-MED ONCE .ROUTE ; Start 05/01/21 at 17:08; Stop 05/01/21 at 17:09; Status DC Morphine Sulfate (Morphine Preservative Free) 10 mg STK-MED ONCE .ROUTE ; Start 05/01/21 at 17:09; Stop 05/01/21 at 17:09; Status DC Methylergonovine Maleate (Methergine) 0.2 mg STK-MED ONCE IM ; Start 05/01/21 at 19:03; Stop 05/01/21 at 19:03; Status DC Active Scripts Active Pepcid (Famotidine) 20 Mg Tablet 20 Mg PO BID 15 Days Dicyclomine Hcl 20 Mg Tablet 1 Tab PO QID 15 Days Zofran (Ondansetron Hcl) 4 Mg Tablet 1 Tab PO Q6HRS Cephalexin 500 Mg Tablet 1 Tab PO BID Ibuprofen 400 Mg Tablet 400 Mg PO PRN Q6HRS PRN Exam On exam patient is having good contractions every 3 -4 minutes and is int Assessment 1. IUP at term 2. Induction of Labor 3. right flank pain. 4. right hydronephrosis Plan of Care: Continue current Tx, Mgmt (as long as patient continues to make progress.) CADE RANDLE MD May 01, 2021 19:57
[2021-05-01] MEDS ORDERED: OXYTOCIN 30 UNIT/500 ML PREMIX 500 ML IV PRN (20:00)
[2021-05-01] MEDS ORDERED: ONDANSETRON PF 4 MG/2 ML VIAL. IVP PRN (20:00)
[2021-05-01] MEDS ORDERED: oxyCODONE/APAP 5/325 1 TAB TABLET PO PRN (20:00)
[2021-05-01] MEDS ORDERED: 0.9 % SODIUM CHLORIDE 10 ML DISP.SYRIN. IV PRN (20:00)
--- NOTE | 2021-05-01 20:14 | PDOC ---
OB Progress Note Date of Service 05/01/2021 Time of Evaluation 0400 PM Problem List Problems Medical Problems: (1) Abdominal wall pain in right flank Status: Acute (2) Hydronephrosis of right kidney Status: Acute Notes This is a redo of note I did earlier before her surgery, that was not saved, apparently, as it has disappeared from my signed notes. OB VITAL SIGNS: Temperature Lab Laboratory Tests Test 04/30/21 20:05 White Blood Count 8.8 x10^3/uL (4.0-11.0) Red Blood Count 4.07 x10^6/uL (3.50-5.40) Hemoglobin 10.8 g/dL (12.0-15.5) Hematocrit 32.4 % (36.0-47.0) Mean Corpuscular Volume 80 fL (79-100) Mean Corpuscular Hemoglobin 27 pg (25-35) Mean Corpuscular Hemoglobin Concent 33 g/dL (31-37) Red Cell Distribution Width 14.6 % (11.5-14.5) Platelet Count 329 x10^3/uL (140-400) Neutrophils (%) (Auto) 75 % (31-73) Lymphocytes (%) (Auto) 17 % (24-48) Monocytes (%) (Auto) 7 % (0-9) Eosinophils (%) (Auto) 1 % (0-3) Basophils (%) (Auto) 0 % (0-3) Neutrophils # (Auto) 6.5 x10^3/uL (1.8-7.7) Lymphocytes # (Auto) 1.5 x10^3/uL (1.0-4.8) Monocytes # (Auto) 0.6 x10^3/uL (0.0-1.1) Eosinophils # (Auto) 0.1 x10^3/uL (0.0-0.7) Basophils # (Auto) 0.0 x10^3/uL (0.0-0.2) Urine Collection Type Unknown Urine Color Yellow Urine Clarity Clear Urine pH 7.0 (<5.0-8.0) Urine Specific [place] 1.015 (1.000-1.030) Urine Protein Negative mg/dL (NEG-TRACE) Urine Glucose (UA) Negative mg/dL (NEG) Urine Ketones (Stick) Negative mg/dL (NEG) Urine Blood Trace (NEG) Urine Nitrite Negative (NEG) Urine Bilirubin Negative (NEG) Urine Urobilinogen Dipstick 0.2 mg/dL (0.2 mg/dL) Urine Leukocyte Esterase Moderate (NEG) Urine RBC Rare /HPF (0-2) Urine WBC 11-20 /HPF (0-4) Urine Squamous Epithelial Cells Many /LPF Urine Bacteria Few /HPF (0-FEW) Urine Mucus Slight /LPF Urine Opiates Screen Neg (NEG) Urine Methadone Screen Neg (NEG) Urine Barbiturates Neg (NEG) Urine Phencyclidine Screen Neg (NEG) Urine Amphetamine/Methamphetamine Neg (NEG) Urine Benzodiazepines Screen Neg (NEG) Urine Cocaine Screen Neg (NEG) Urine Cannabinoids Screen Neg (NEG) Urine Ethyl Alcohol Neg (NEG) Treponema pallidum Antibody Nonreactive (Nonreactive) SARS-CoV-2 RNA (LEXY) Negative (Negative) SARS-CoV-2 Antigen (Rapid) Negative (NEGATIVE) Laboratory Tests Test 04/30/21 20:05 White Blood Count 8.8 x10^3/uL (4.0-11.0) Red Blood Count 4.07 x10^6/uL (3.50-5.40) Hemoglobin 10.8 g/dL (12.0-15.5) Hematocrit 32.4 % (36.0-47.0) Mean Corpuscular Volume 80 fL (79-100) Mean Corpuscular Hemoglobin 27 pg (25-35) Mean Corpuscular Hemoglobin Concent 33 g/dL (31-37) Red Cell Distribution Width 14.6 % (11.5-14.5) Platelet Count 329 x10^3/uL (140-400) Neutrophils (%) (Auto) 75 % (31-73) Lymphocytes (%) (Auto) 17 % (24-48) Monocytes (%) (Auto) 7 % (0-9) Eosinophils (%) (Auto) 1 % (0-3) Basophils (%) (Auto) 0 % (0-3) Neutrophils # (Auto) 6.5 x10^3/uL (1.8-7.7) Lymphocytes # (Auto) 1.5 x10^3/uL (1.0-4.8) Monocytes # (Auto) 0.6 x10^3/uL (0.0-1.1) Eosinophils # (Auto) 0.1 x10^3/uL (0.0-0.7) Basophils # (Auto) 0.0 x10^3/uL (0.0-0.2) Urine Collection Type Unknown Urine Color Yellow Urine Clarity Clear Urine pH 7.0 (<5.0-8.0) Urine Specific [place] 1.015 (1.000-1.030) Urine Protein Negative mg/dL (NEG-TRACE) Urine Glucose (UA) Negative mg/dL (NEG) Urine Ketones (Stick) Negative mg/dL (NEG) Urine Blood Trace (NEG) Urine Nitrite Negative (NEG) Urine Bilirubin Negative (NEG) Urine Urobilinogen Dipstick 0.2 mg/dL (0.2 mg/dL) Urine Leukocyte Esterase Moderate (NEG) Urine RBC Rare /HPF (0-2) Urine WBC 11-20 /HPF (0-4) Urine Squamous Epithelial Cells Many /LPF Urine Bacteria Few /HPF (0-FEW) Urine Mucus Slight /LPF Urine Opiates Screen Neg (NEG) Urine Methadone Screen Neg (NEG) Urine Barbiturates Neg (NEG) Urine Phencyclidine Screen Neg (NEG) Urine Amphetamine/Methamphetamine Neg (NEG) Urine Benzodiazepines Screen Neg (NEG) Urine Cocaine Screen Neg (NEG) Urine Cannabinoids Screen Neg (NEG) Urine Ethyl Alcohol Neg (NEG) Treponema pallidum Antibody Nonreactive (Nonreactive) SARS-CoV-2 RNA (LEXY) Negative (Negative) SARS-CoV-2 Antigen (Rapid) Negative (NEGATIVE) Medications Current Medications Sodium Chloride (Normal Saline Flush) 3 ml QSHIFT PRN IV AFTER MEDS AND BLOOD DRAWS; Start 04/30/21 at 20:15 Ringer's Solution 1,000 ml @ 125 mls/hr Q8H IV Last administered on 05/01/21at 14:08; Start 04/30/21 at 20:15 Fentanyl Citrate (Fentanyl 2ml Vial) 100 mcg PRN Q30MIN PRN IVP Severe pain Last administered on 05/01/21at 12:58; Start 04/30/21 at 20:15 Fentanyl Citrate (Fentanyl 2ml Vial) 50 mcg PRN Q10MIN PRN IVP Labor pain; Start 04/30/21 at 20:15 Acetaminophen (Tylenol) 650 mg PRN Q6HRS PRN PO MILD PAIN / TEMP > 100.3'F; Start 04/30/21 at 20:15 Ondansetron HCl (Zofran) 4 mg PRN Q4HRS PRN IVP NAUSEA/VOMITING; Start 04/30/21 at 20:15 Al Hydroxide/Mg Hydroxide (Mylanta Plus Xs) 30 ml PRN Q4HRS PRN PO HEARTBURN / GAS; Start 04/30/21 at 20:15 Zolpidem Tartrate (Ambien) 5 mg PRN QHS PRN PO INSOMNIA; Start 04/30/21 at 20:15 Terbutaline Sulfate (Brethine) 0.25 mg 1X PRN PRN SQ SEE COMMENTS; Start 04/30/21 at 20:15; Stop 05/01/21 at 20:14 Lidocaine HCl (Xylocaine 1% Pf 30ml Vial) 30 ml 1X PRN PRN INJ SEE COMMENTS; Start 04/30/21 at 20:15; Stop 05/02/21 at 20:14 Oxytocin 500 ml @ 0 mls/hr CONT PRN IV SEE I/O RECORD Last administered on 04/30/21at 20:59; Start 04/30/21 at 20:15 Oxytocin 500 ml @ 0 mls/hr CONT PRN PRN IV Post delivery bleeding Last administered on 05/01/21at 19:05; Start 04/30/21 at 20:15 Ibuprofen (Motrin) 800 mg PRN Q6HRS PRN PO INFLAMMATION; Start 04/30/21 at 20:15 Cefazolin Sodium/ Dextrose 50 ml @ 100 mls/hr 1X ONCE IV Last administered on 05/01/21at 17:35; Start 05/01/21 at 17:00; Stop 05/01/21 at 17:29; Status DC Citric Acid/ Sodium Citrate (Bicitra) 30 ml 1X ONCE PO Last administered on 05/01/21at 17:34; Start 05/01/21 at 17:00; Stop 05/01/21 at 17:01; Status DC Oxytocin (Pitocin) 10 unit STK-MED ONCE .ROUTE ; Start 05/01/21 at 17:07; Stop 05/01/21 at 17:07; Status DC Oxytocin (Pitocin) 10 unit STK-MED ONCE .ROUTE ; Start 05/01/21 at 17:07; Stop 05/01/21 at 17:07; Status DC Ephedrine Sulfate (ePHEDrine PF IN SALINE SYRINGE) 50 mg STK-MED ONCE IV ; Start 05/01/21 at 17:08; Stop 05/01/21 at 17:08; Status DC Phenylephrine HCl (PHENYLEPHRINE in 0.9% NACL PF) 1 mg STK-MED ONCE IV ; Start 05/01/21 at 17:08; Stop 05/01/21 at 17:08; Status DC Famotidine (Pepcid Vial) 20 mg STK-MED ONCE .ROUTE ; Start 05/01/21 at 17:08; Stop 05/01/21 at 17:08; Status DC Ondansetron HCl (Zofran) 4 mg STK-MED ONCE .ROUTE ; Start 05/01/21 at 17:08; Stop 05/01/21 at 17:08; Status DC Fentanyl Citrate (Fentanyl 2ml Vial) 100 mcg STK-MED ONCE .ROUTE ; Start 05/01/21 at 17:08; Stop 05/01/21 at 17:09; Status DC Morphine Sulfate (Morphine Preservative Free) 10 mg STK-MED ONCE .ROUTE ; Start 05/01/21 at 17:09; Stop 05/01/21 at 17:09; Status DC Methylergonovine Maleate (Methergine) 0.2 mg STK-MED ONCE IM ; Start 05/01/21 at 19:03; Stop 05/01/21 at 19:03; Status DC Active Scripts Active Pepcid (Famotidine) 20 Mg Tablet 20 Mg PO BID 15 Days Dicyclomine Hcl 20 Mg Tablet 1 Tab PO QID 15 Days Zofran (Ondansetron Hcl) 4 Mg Tablet 1 Tab PO Q6HRS Cephalexin 500 Mg Tablet 1 Tab PO BID Ibuprofen 400 Mg Tablet 400 Mg PO PRN Q6HRS PRN Exam On vaginal exam at 0300 PM CX was still 6-7 cm and 90% effaced but the presenting part was not pushing against the cervix. It was still at -3 or higher and easily ballotable. However, I did not feel a firm presenting part like the head, rather a soft compresible presenting part. As a result of the lack of change and questionable presenting part, US was ordered to delineate the presenting part. At the same time the pitocin drip was stopped. US showed that the fetus was Breach with double footling presenting part. Dr. West was then consulted. FHT are reassuring with good variability and rate. Assessment IUP at term. Induction Stopped. Double Footling Breach. R flank/back pain. R Hydronephrosis Plan of Care: Other (Consult entered for Dr. West for [place] [facility] due to Double Footling Breach presentation. Mother and fetus stable.) CADE RANDLE MD May 01, 2021 20:14
[2021-05-01] MEDS: KETOROLAC 30 MG/ML VIAL. IVP PRN (20:15)
[2021-05-01 21:45] VITALS: BP 118/65
[2021-05-01] MEDS: IBUPROFEN 400 MG TABLET. PO SCH (22:00)
[2021-05-01] MEDS: diphenhydrAMINE ORAL ELIXIR 12.5 MG/5 ML ML PO PRN (22:31)
[2021-05-02] VITALS (14 sets, daily range): BP systolic 54–112; BP diastolic 55–103
[2021-05-02] MEDS: KETOROLAC 30 MG/ML VIAL. IVP PRN ×2 (02:48→09:33)
[2021-05-02] MEDS: IV RINGERS,LACTATED 1000ML 1,000 ML IV SCH (03:10)
[2021-05-02] MEDS: diphenhydrAMINE ORAL ELIXIR 12.5 MG/5 ML ML PO PRN ×2 (04:03→20:18)
[2021-05-02 08:49] LABS: BASO % 0 % (0-3); EOS % 1 % (0-3); LYMPH # 1.3 x10^3/uL (1.0-4.8); LYMPH % 19 % (24-48); MEAN CORPUSCULAR HEMOGLOBIN 27 pg (25-35); MEAN CORPUSCULAR HGB CONC 34 g/dL (31-37); MEAN CORPUSCULAR VOLUME 81 fL (79-100); MONO # 0.6 x10^3/uL (0.0-1.1); MONO % 9 % (0-9); NEUT # 4.9 x10^3/uL (1.8-7.7); NEUT % 72 % (31-73); PLATELET COUNT 208 x10^3/uL (140-400); RED BLOOD COUNT 2.51 x10^6/uL (3.50-5.40); RED CELL DISTRIBUTION WIDTH 14.9 % (11.5-14.5); WHITE BLOOD COUNT 6.9 x10^3/uL (4.0-11.0)
[2021-05-02 08:59] LABS: HEMOGLOBIN 6.8 g/dL (12.0-15.5)
[2021-05-02 09:00] LABS: HEMATOCRIT 20.3 % (36.0-47.0)
[2021-05-02] MEDS: FERROUS SULFATE 325 MG TABLET. PO SCH ×2 (09:59→20:18)
[2021-05-02] MEDS: MULTIVITAMIN with MINERAL TABLET. PO SCH (10:06)
[2021-05-02] MEDS: oxyCODONE/APAP 5/325 1 TAB TABLET PO PRN ×2 (14:43→17:51)
--- NOTE | 2021-05-02 20:01 | PDOC ---
OB Progress Note Date of Service 1 Time of Evaluation 0630 PM Date: 05/01/2021 Time: 1811 Problem List Problems Medical Problems: (1) Abdominal wall pain in right flank Status: Acute (2) Hydronephrosis of right kidney Status: Acute 3) Day 1 post for double footling breach with nuchal cord x 2 Notes Nursing reports that patient has been up and about walking around room and baca without difficulty. Patient also states she is feeling significantly better than when we spoke this AM and I explained that she had lost significant amount of blood foloowing the , so much that she received methergine in the post-surgery recovery area. She noted then that she felt very tired and when she tried to raise up she was light headed. All of these symptoms have r esolved with the 1 unit of red cells she received this late AM. She did have episode of feeling hot and sweating a lot this afternoon but she has not had a fever at all. She denies any dysuria. No leg pain. No difficulty with breathing. Abdominal pain as to be expected following surgery. She is breast feeding and does have some nipple tenderness and the nursing staff reported some bleeding. Patient tells me that the baby is often sleepy when she is feeding her. She will suck after latching on for a brief few minutes, fall asleep, suck again, fall asleep. After about 30 -40 minutes she will switch her to the other breast and repeat the same process. She did give her 3 ounces of formula which she took but right after that she threw up a lot. She did not burp her during the feeding. She also complains that she is still itching all over. Anesthesia told her that she might itch following the spinal injection which she did. But she continues to itch today. Nursing staff indicates that she has been given benadryl earlier in day and that this seemed to help. Lab Laboratory Tests Test 04/30/21 20:05 05/02/21 08:15 White Blood Count 8.8 x10^3/uL (4.0-11.0) 6.9 x10^3/uL (4.0-11.0) Red Blood Count 4.07 x10^6/uL (3.50-5.40) 2.51 x10^6/uL (3.50-5.40) Hemoglobin 10.8 g/dL (12.0-15.5) 6.8 g/dL (12.0-15.5) Hematocrit 32.4 % (36.0-47.0) 20.3 % (36.0-47.0) Mean Corpuscular Volume 80 fL (79-100) 81 fL (79-100) Mean Corpuscular Hemoglobin 27 pg (25-35) 27 pg (25-35) Mean Corpuscular Hemoglobin Concent 33 g/dL (31-37) 34 g/dL (31-37) Red Cell Distribution Width 14.6 % (11.5-14.5) 14.9 % (11.5-14.5) Platelet Count 329 x10^3/uL (140-400) 208 x10^3/uL (140-400) Neutrophils (%) (Auto) 75 % (31-73) 72 % (31-73) Lymphocytes (%) (Auto) 17 % (24-48) 19 % (24-48) Monocytes (%) (Auto) 7 % (0-9) 9 % (0-9) Eosinophils (%) (Auto) 1 % (0-3) 1 % (0-3) Basophils (%) (Auto) 0 % (0-3) 0 % (0-3) Neutrophils # (Auto) 6.5 x10^3/uL (1.8-7.7) 4.9 x10^3/uL (1.8-7.7) Lymphocytes # (Auto) 1.5 x10^3/uL (1.0-4.8) 1.3 x10^3/uL (1.0-4.8) Monocytes # (Auto) 0.6 x10^3/uL (0.0-1.1) 0.6 x10^3/uL (0.0-1.1) Eosinophils # (Auto) 0.1 x10^3/uL (0.0-0.7) 0.0 x10^3/uL (0.0-0.7) Basophils # (Auto) 0.0 x10^3/uL (0.0-0.2) 0.0 x10^3/uL (0.0-0.2) Urine Collection Type Unknown Urine Color Yellow Urine Clarity Clear Urine pH 7.0 (<5.0-8.0) Urine Specific [place] 1.015 (1.000-1.030) Urine Protein Negative mg/dL (NEG-TRACE) Urine Glucose (UA) Negative mg/dL (NEG) Urine Ketones (Stick) Negative mg/dL (NEG) Urine Blood Trace (NEG) Urine Nitrite Negative (NEG) Urine Bilirubin Negative (NEG) Urine Urobilinogen Dipstick 0.2 mg/dL (0.2 mg/dL) Urine Leukocyte Esterase Moderate (NEG) Urine RBC Rare /HPF (0-2) Urine WBC 11-20 /HPF (0-4) Urine Squamous Epithelial Cells Many /LPF Urine Bacteria Few /HPF (0-FEW) Urine Mucus Slight /LPF Urine Opiates Screen Neg (NEG) Urine Methadone Screen Neg (NEG) Urine Barbiturates Neg (NEG) Urine Phencyclidine Screen Neg (NEG) Urine Amphetamine/Methamphetamine Neg (NEG) Urine Benzodiazepines Screen Neg (NEG) Urine Cocaine Screen Neg (NEG) Urine Cannabinoids Screen Neg (NEG) Urine Ethyl Alcohol Neg (NEG) Treponema pallidum Antibody Nonreactive (Nonreactive) SARS-CoV-2 RNA (LEXY) Negative (Negative) SARS-CoV-2 Antigen (Rapid) Negative (NEGATIVE) Laboratory Tests Test 05/02/21 08:15 White Blood Count 6.9 x10^3/uL (4.0-11.0) Red Blood Count 2.51 x10^6/uL (3.50-5.40) Hemoglobin 6.8 g/dL (12.0-15.5) Hematocrit 20.3 % (36.0-47.0) Mean Corpuscular Volume 81 fL (79-100) Mean Corpuscular Hemoglobin 27 pg (25-35) Mean Corpuscular Hemoglobin Concent 34 g/dL (31-37) Red Cell Distribution Width 14.9 % (11.5-14.5) Platelet Count 208 x10^3/uL (140-400) Neutrophils (%) (Auto) 72 % (31-73) Lymphocytes (%) (Auto) 19 % (24-48) Monocytes (%) (Auto) 9 % (0-9) Eosinophils (%) (Auto) 1 % (0-3) Basophils (%) (Auto) 0 % (0-3) Neutrophils # (Auto) 4.9 x10^3/uL (1.8-7.7) Lymphocytes # (Auto) 1.3 x10^3/uL (1.0-4.8) Monocytes # (Auto) 0.6 x10^3/uL (0.0-1.1) Eosinophils # (Auto) 0.0 x10^3/uL (0.0-0.7) Basophils # (Auto) 0.0 x10^3/uL (0.0-0.2) Medications Current Medications Sodium Chloride (Normal Saline Flush) 3 ml QSHIFT PRN IV AFTER MEDS AND BLOOD DRAWS; Start 04/30/21 at 20:15 Ringer's Solution 1,000 ml @ 125 mls/hr Q8H IV Last administered on 05/02/21at 03:10; Start 04/30/21 at 20:15 Fentanyl Citrate (Fentanyl 2ml Vial) 100 mcg PRN Q30MIN PRN IVP Severe pain Last administered on 05/01/21at 12:58; Start 04/30/21 at 20:15 Fentanyl Citrate (Fentanyl 2ml Vial) 50 mcg PRN Q10MIN PRN IVP Labor pain; Start 04/30/21 at 20:15 Acetaminophen (Tylenol) 650 mg PRN Q6HRS PRN PO MILD PAIN / TEMP > 100.3'F; Start 04/30/21 at 20:15 Ondansetron HCl (Zofran) 4 mg PRN Q4HRS PRN IVP NAUSEA/VOMITING Last administered on 05/01/21at 21:40; Start 04/30/21 at 20:15 Al Hydroxide/Mg Hydroxide (Mylanta Plus Xs) 30 ml PRN Q4HRS PRN PO HEARTBURN / GAS; Start 04/30/21 at 20:15 Zolpidem Tartrate (Ambien) 5 mg PRN QHS PRN PO INSOMNIA; Start 04/30/21 at 20:15 Terbutaline Sulfate (Brethine) 0.25 mg 1X PRN PRN SQ SEE COMMENTS; Start 04/30/21 at 20:15; Stop 05/01/21 at 20:14; Status DC Lidocaine HCl (Xylocaine 1% Pf 30ml Vial) 30 ml 1X PRN PRN INJ SEE COMMENTS; Start 04/30/21 at 20:15; Stop 05/02/21 at 20:14 Oxytocin 500 ml @ 0 mls/hr CONT PRN IV SEE I/O RECORD Last administered on 04/30/21at 20:59; Start 04/30/21 at 20:15 Oxytocin 500 ml @ 0 mls/hr CONT PRN PRN IV Post delivery bleeding Last administered on 05/01/21at 19:05; Start 04/30/21 at 20:15 Ibuprofen (Motrin) 800 mg PRN Q6HRS PRN PO INFLAMMATION; Start 04/30/21 at 20:15; Status Cancel Cefazolin Sodium/ Dextrose 50 ml @ 100 mls/hr 1X ONCE IV Last administered on 05/01/21at 17:35; Start 05/01/21 at 17:00; Stop 05/01/21 at 17:29; Status DC Citric Acid/ Sodium Citrate (Bicitra) 30 ml 1X ONCE PO Last administered on 05/01/21at 17:34; Start 05/01/21 at 17:00; Stop 05/01/21 at 17:01; Status DC Oxytocin (Pitocin) 10 unit STK-MED ONCE .ROUTE ; Start 05/01/21 at 17:07; Stop 05/01/21 at 17:07; Status DC Oxytocin (Pitocin) 10 unit STK-MED ONCE .ROUTE ; Start 05/01/21 at 17:07; Stop 05/01/21 at 17:07; Status DC Ephedrine Sulfate (ePHEDrine PF IN SALINE SYRINGE) 50 mg STK-MED ONCE IV ; Start 05/01/21 at 17:08; Stop 05/01/21 at 17:08; Status DC Phenylephrine HCl (PHENYLEPHRINE in 0.9% NACL PF) 1 mg STK-MED ONCE IV ; Start 05/01/21 at 17:08; Stop 05/01/21 at 17:08; Status DC Famotidine (Pepcid Vial) 20 mg STK-MED ONCE .ROUTE ; Start 05/01/21 at 17:08; Stop 05/01/21 at 17:08; Status DC Ondansetron HCl (Zofran) 4 mg STK-MED ONCE .ROUTE ; Start 05/01/21 at 17:08; Stop 05/01/21 at 17:08; Status DC Fentanyl Citrate (Fentanyl 2ml Vial) 100 mcg STK-MED ONCE .ROUTE ; Start 05/01/21 at 17:08; Stop 05/01/21 at 17:09; Status DC Morphine Sulfate (Morphine Preservative Free) 10 mg STK-MED ONCE .ROUTE ; Start 05/01/21 at 17:09; Stop 05/01/21 at 17:09; Status DC Methylergonovine Maleate (Methergine) 0.2 mg STK-MED ONCE IM ; Start 05/01/21 at 19:03; Stop 05/01/21 at 19:03; Status DC Sodium Chloride (Normal Saline Flush) 3 ml QSHIFT PRN IV AFTER MEDS AND BLOOD DRAWS; Start 05/01/21 at 20:00 Oxytocin 500 ml @ 125 mls/hr CONT PRN IV EXCESSIVE POST- BLEEDING; Start 05/01/21 at 20:00; Stop 05/02/21 at 03:59; Status DC Ibuprofen (Motrin) 800 mg Q8HRS PO ; Start 05/01/21 at 22:00 Ondansetron HCl (Zofran) 4 mg PRN Q6HRS PRN IVP NAUSEA/VOMITING; Start 05/01/21 at 20:00 Docusate Sodium (Colace) 100 mg PRN BID PRN PO HARD STOOLS; Start 05/01/21 at 20:00 Diphenhydramine HCl (Benadryl Oral Elixir) 12.5 mg PRN Q6HRS PRN PO ITCHING Last administered on 05/02/21at 04:03; Start 05/01/21 at 20:00 Ferrous Sulfate (Feosol) 325 mg BIDWMEALS PO Last administered on 05/02/21at 09:59; Start 05/02/21 at 08:00 Multivitamins (Thera M Plus) 1 tab DAILY PO Last administered on 05/02/21at 10:06; Start 05/02/21 at 09:00 Oxycodone/ Acetaminophen (Percocet 5/325) 1 tab PRN Q4HRS PRN PO MILD PAIN 1-3 (2ND CHOICE) Last administered on 05/02/21at 17:51; Start 05/01/21 at 20:00 Oxycodone/ Acetaminophen (Percocet 5/325) 2 tab PRN Q4HRS PRN PO MODERATE PAIN, SEVERE PAIN; Start 05/01/21 at 20:00 Ketorolac Tromethamine (Toradol 30mg Vial) 30 mg PRN Q6HRS PRN IVP INFLAMMATION Last administered on 05/02/21at 09:33; Start 05/01/21 at 20:15; Stop 05/06/21 at 20:14 Active Scripts Active Pepcid (Famotidine) 20 Mg Tablet 20 Mg PO BID 15 Days Dicyclomine Hcl 20 Mg Tablet 1 Tab PO QID 15 Days Zofran (Ondansetron Hcl) 4 Mg Tablet 1 Tab PO Q6HRS Cephalexin 500 Mg Tablet 1 Tab PO BID Ibuprofen 400 Mg Tablet 400 Mg PO PRN Q6HRS PRN Exam Smiling as she is sitting up in bed with the baby in the crib next to her. Color looks good, Lungs clear. Heart reg. Abdomen -BS present. Did not palpate. No CVA tenderness. No calf tenderness. Neg Abbey's. No edema of extremities.Neuro WNL. HgB this Am down to 6.8 down from 10.8 on admission. Assessment 1. Day 1 Post - stable surgical site. 2. Anemia secondary to blood loss. 3. s/p 1 unit of blood. 4. . 5. Nipple tenderness. Plan of Care: Continue current Tx, Mgmt (H and H ordered for 8 pm tonight. ) CADE RANDLE MD May 02, 2021 20:01
[2021-05-02] MEDS: DOCUSATE SODIUM 100 MG CAPSULE. PO PRN (20:18)
[2021-05-02] MEDS: IBUPROFEN 400 MG TABLET. PO SCH (20:18)
[2021-05-02 20:54] LABS: HEMATOCRIT 24.4 % (36.0-47.0); HEMOGLOBIN 8.2 g/dL (12.0-15.5); RED BLOOD COUNT 2.96 x10^6/uL (3.50-5.40); RED CELL DISTRIBUTION WIDTH 15.4 % (11.5-14.5); WHITE BLOOD COUNT 8.4 x10^3/uL (4.0-11.0)
[2021-05-03] MEDS: oxyCODONE/APAP 5/325 1 TAB TABLET PO PRN ×3 (03:08→19:47)
[2021-05-03 08:10] VITALS: BP 110/69
[2021-05-03] MEDS: MULTIVITAMIN with MINERAL TABLET. PO SCH (08:14)
[2021-05-03] MEDS: FERROUS SULFATE 325 MG TABLET. PO SCH (08:14)
[2021-05-03] MEDS: IBUPROFEN 400 MG TABLET. PO SCH ×2 (08:16→19:47)
[2021-05-03 13:00] VITALS: BP 132/78
[2021-05-03 17:00] VITALS: BP 115/71
[2021-05-03 20:00] VITALS: BP 118/73
[2021-05-04] MEDS: IBUPROFEN 400 MG TABLET. PO SCH ×2 (03:23→17:04)
[2021-05-04] MEDS: oxyCODONE/APAP 5/325 1 TAB TABLET PO PRN ×5 (03:24→16:55)
[2021-05-04 08:10] VITALS: BP 106/73
[2021-05-04] MEDS: FERROUS SULFATE 325 MG TABLET. PO SCH ×2 (08:51→16:54)
[2021-05-04] MEDS: DOCUSATE SODIUM 100 MG CAPSULE. PO PRN ×2 (08:51→16:54)
[2021-05-04] MEDS: MULTIVITAMIN with MINERAL TABLET. PO SCH (08:51)
[2021-05-04] MEDS ORDERED: DIPH,PERTUSS(ACELL),TET VAC/PF 0.5 ML SYRINGE. VAX IM ONE (10:45)
--- NOTE | 2021-05-04 11:35 | PDOC ---
GENERAL General: Patient doing ok. No Problems. VITAL SIGNS Vital Signs/I&O: Vital Signs Date Time Temp Pulse Resp B/P (MAP) Pulse Ox O2 Delivery O2 Flow Rate FiO2 05/04/21 08:54 16 99 Room Air 05/04/21 08:10 97.7 86 106/73 (84) 97.7 ALLERGIES Allergies: Allergies Coded Allergies Type Severity Reaction Last Updated Verified No Known Drug Allergies 04/09/21 No MEDS Medications: Current Medications Medications (Trade) Dose Ordered Sig/Kristine Route PRN Reason Start Time Stop Time Status Last Admin Dose Admin Diphtheria/ Tetanus/Acell Pertussis (ADACEL TDap SYRINGE) 0.5 ml ONCE ONCE VAX IM 05/04/21 10:45 05/04/21 10:46 DC 05/04/21 10:52 ASSESSMENT & PLAN A&P Vital signs stable. Lochia normal. Incision healing well. Doing ok. Justifications for Admission Other Justification MALINDA ORTEGA MD May 04, 2021 11:35
--- NOTE | 2021-05-04 12:44 | PDOC3 ---
OB DISCHARGE SUMMARY DATE OF ADMISSION: 05/01/2021 DATE OF DISCHARGE: 05/05/2021 REASON FOR ADMISSION: Induction of labor PROCEDURES: Ultrasound INTRAPARTUM PROCEDURES: : Low Cerv Trans, Others (, 1 gram Ancef IV just prior to delivery; methergine in recovery.) PROCEDURES: Transfusion (1 unit of packed red cells infused on 05/03/2021), Others (Adult TDaP vaccine) PROBLEM LIST AT DISCHARGE Problems Medical Problems: (1) Abdominal wall pain in right flank Status: Acute resolved with delivery (2) Hydronephrosis of right kidney Status: Acute- will-recheck US in 2 -3 weeks. Suspect this also has resolved. 3. IUP delivered 4. for double footling breach , also had nucchal cord x 2. 5. hemorrhage-resolved. 6. Anemia due to blood loss requiring 1 unit of Packed red blood cells infused. 7. Transfusion of 1 unit packed red cells. DISCHARGE DIAGNOSIS: Failed/Induction (due to fetus flipping to breach), Term Delivered, Others (. for double footling breach , also had nucchal cord x 2. hemorrhage-resolved. Anemia due to blood loss requiring 1 unit of Packed red blood cells infused.) DISCHARGE INFORMATION: Activity, Diet, Medications, Instructions, Discharge to (home), Accompanied By (mother and the new born baby.) HOSPITAL COURSE Hospital course after and bleediing in recovery was unremarkable. She has been well and has been up and about in room and baca. Is happy to be going home. And is very glad that the right flank pain which has bothered her intensely in last trimester has finally resolved. Suspect that it was due to the hydronephrosis and the baby laying on her pelvic nerves as well. Eating well without problems at discharge and has been [passing gas all day on day of discharge. Does have a headache off and on but not debilitating. This should resolve as her anemia resolves. Appreciate Dr. West's consult and prompt surgical intervention and care. CONDITION AT DISCHARGE Good CADE RANDLE MD May 04, 2021 12:44
[2021-05-04 12:51] VITALS: BP 125/56
[2021-05-04 16:47] VITALS: BP 122/82
--- NOTE | 2021-05-04 17:20 | NUR ---
Dismissed amb to mom thru er. Baby in car seat. Rx sent to [facility] by and pt will order picker. Pain under control and pt knows when to take next meds.
== END 2021-05-04 17:20 | disposition home or self-care (01) | DRG 787 ==
LOC: 3 SO LND 19:30 → OBSVTOIN 19:30
PROVIDERS: ADMIT Obstetrics & Gynecology; ATTEND Family Medicine
PROC: 10D00Z1 Extraction of Products of Conception, Low, Open Approach (ICD-10-PCS; principal; 2021-05-01)
PROC: 30233N1 Transfusion of Nonautologous Red Blood Cells into Peripheral Vein, Percutaneous Approach (ICD-10-PCS; 2021-05-02)
PROC: 3E0234Z Introduction of Serum, Toxoid and Vaccine into Muscle, Percutaneous Approach (ICD-10-PCS; 2021-05-04)
DX: O32.8XX0 Maternal care for other malpresentation of fetus, not applicable or unspecified (principal); N13.30 Unspecified hydronephrosis; O72.1 Other immediate postpartum hemorrhage; D50.0 Iron deficiency anemia secondary to blood loss (chronic); O69.81X0 Labor and delivery complicated by cord around neck, without compression, not applicable or unspecified; O77.0 Labor and delivery complicated by meconium in amniotic fluid; O99.02 Anemia complicating childbirth; O99.892 Other specified diseases and conditions complicating childbirth; Z20.822 Contact with and (suspected) exposure to COVID-19; Z37.0 Single live birth; Z23 Encounter for immunization; Z3A.40 40 weeks gestation of pregnancy
CPT/HCPCS: 36415; 36430; 76815; 80307; 81001; 85025; 85027; 86592; 86850; 86900; 86901; 86920; 87086; 87426; 90471; 90715; J0690; J1885; J2210; J2274; J2370; J2405; J2590; J3010; J3490; J7120; P9016; U0003; U0005; G0378

== ENCOUNTER 2022-03-02 09:18 | Emergency (ER) | payer MEDICAID ==
[~2022-03-02] VITALS: Ht 160 cm; Wt 66.0 kg
[~2022-03-02 09:18] MED LIST changes: +DICY20TA PO; -DICY20TA3 PO; +METR-34 PO
[2022-03-02 09:58] VITALS: BP 117/66
--- NOTE | 2022-03-02 10:01 | ED.ADGEN ---
Past Medical History Past Medical History: No Pertinent History, UTI Past Surgical History: Additional Past Surgical Histo: Hernia repair Smoking Status: Never Smoker Alcohol Use: None Drug Use: None General Adult EDM: Chief Complaint: PAIN ON URINATION HPI: HPI: Patient is a 21 year old female who arrives ambulatory to the emergency department complaining of dysuria and urinary frequency. Patient reports she was evaluated in this emergency department roughly 1 week previously and told she had a bad infection. Patient was prescribed antibiotics and has completed them. Patient reports she had resolution of her symptoms only for him to return within the last day or 2. Patient states she is however she is not had any vaginal bleeding or discharge. She further denies any lower abdominal pain. She states her only concern is the dysuria she is experiencing. She is awake, alert and nontoxic-appearing Review of Systems: Review of Systems: Constitutional: Denies fever or chills. [] Eyes: Denies change in visual acuity. [] HENT: Denies nasal congestion or sore throat. [] Respiratory: Denies cough or shortness of breath. [] Cardiovascular: Denies chest pain or edema. [] GI: Denies abdominal pain, nausea, vomiting, bloody stools or diarrhea. [] : Reports dysuria. Reports . Denies vaginal discharge or bleeding. [] Musculoskeletal: Denies back pain or joint pain. [] Integument: Denies rash. [] Neurologic: Denies headache, focal weakness or sensory changes. [] Endocrine: Denies polyuria or polydipsia. [] Lymphatic: Denies swollen glands. [] Psychiatric: Denies depression or anxiety. [] Allergies: Allergies: Allergies Coded Allergies Type Severity Reaction Last Updated Verified No Known Drug Allergies 02/07/22 No Physical Exam: PE: Constitutional: Well developed, well nourished, no acute distress, non-toxic appearance. [] HENT: Normocephalic, atraumatic, bilateral external ears normal, oropharynx moist, no oral exudates, nose normal. [] Eyes: PERRLA, EOMI, conjunctiva normal, no discharge. [] Neck: Normal range of motion, no tenderness, supple, no stridor. [] Cardiovascular:Heart rate regular rhythm, no murmur [] Lungs & Thorax: Bilateral breath sounds clear to auscultation [] Abdomen: Bowel sounds normal, soft, no tenderness, no masses, no pulsatile masses. [] Skin: Warm, dry, no erythema, no rash. [] Back: No tenderness, no CVA tenderness. [] Extremities: No tenderness, no cyanosis, no clubbing, ROM intact, no edema. [] Neurologic: Alert and oriented X 3, normal motor function, normal sensory function, no focal deficits noted. [] Psychologic: Affect normal, judgement normal, mood normal. [] Current Patient Data: Labs: Laboratory Tests Test 03/02/22 10:06 Urine Collection Type Unknown Urine Color (Auto) Yellow Urine Turbidity Hazy Urine pH (Auto) 6.5 (<5.0-8.0) Urine Specific [place] 1.028 (1.000-1.030) Urine Protein (Auto) Negative mg/dL (Negative) Urine Glucose (Auto)(UA) Negative mg/dL (Negative) Urine Ketones (Auto) 60 mg/dL (Negative) Urine Blood (Auto) Negative (Negative) Urine Nitrite Negative (Negative) Urine Bilirubin (Auto) Negative (Negative) Urine Urobilinogen (Auto) Normal mg/dL (Normal) Urine Leukocyte Esterase (Auto) Large (Negative) Urine RBC 0 /HPF (0-2) Urine WBC >40 /HPF (0-4) Urine Squamous Epithelial Cells Few /LPF Urine Bacteria Few /HPF (0-FEW) Urine Mucus Mod /LPF Microbiology 03/02/22 Wet Prep - Final, Complete Vital Signs: Vital Signs Date Time Temp Pulse Resp B/P (MAP) Pulse Ox O2 Delivery O2 Flow Rate FiO2 03/02/22 09:58 98.8 88 16 117/66 (83) 99 Room Air 98.8 EKG: EKG: [] Heart Score: C/O Chest Pain: No Risk Factors: Risk Factors: DM, Current or recent (<one month) smoker, HTN, HLP, family history of CAD, obesity. Risk Scores: Score 0 - 3: 2.5% MACE over next 6 weeks - Discharge Home Score 4 - 6: 20.3% MACE over next 6 weeks - Admit for Clinical Observation Score 7 - 10: 72.7% MACE over next 6 weeks - Early Invasive Strategies Radiology/Procedures: Radiology/Procedures: [] Course & Med Decision Making: Course & Med Decision Making Pertinent Labs and Imaging studies reviewed. (See chart for details). Upon ar rival the patient was taken to fast track room D where the patient was interviewed and examined. The patient maintains that she has dysuria only and has not had any vaginal symptoms otherwise. This is important because the patient is . Moreover she did not experience any pelvic pain at any time. Patient does have findings consistent with urinary tract infection. Patient doubts that she has any sexually transmitted infections as she is in a monogamous relationship. Nonetheless gonorrhea and Chlamydia cultures are pending at this time. The patient has been advised to follow-up with her primary care physician/PROGRAM COORDINATOR in 1 week. She otherwise has been instructed to avoid any sexual activity until her symptoms have completely resolved. [] Dragon Disclaimer: Dragon Disclaimer: This electronic medical record was generated, in whole or in part, using a voice recognition dictation system. Departure Departure Impression: Primary Impression: UTI (urinary tract infection) in in first trimester Disposition: 01 HOME / SELF CARE / HOMELESS Condition: STABLE Referrals: CADE RANDLE MD (PCP) Patient Instructions: Urinary Tract Infection Additional Instructions: Follow-up with your primary care physician/PROGRAM COORDINATOR in 1 week Scripts Nitrofurantoin Monohyd/M-Cryst (MACROBID 100 MG CAPSULE) 100 Mg Capsule 1 CAP PO BID for 7 Days, #14 CAP 0 Refills Prov: SADE SLATER DO 03/02/22 SADE SLATER DO March 02, 2022 10:01
[2022-03-02 10:19] LABS: BACTERIA,URINE FEW /HPF (0-FEW); RBC,URINE 0 /HPF (0-2); WBC,URINE >40 /HPF (0-4)
[2022-03-02] MEDS ORDERED: NITR100C62 PO (10:50)
== END 2022-03-02 11:04 | disposition home or self-care (01) ==
LOC: ER 09:18
DX: O23.41 Unspecified infection of urinary tract in pregnancy, first trimester (principal); Z3A.00 Weeks of gestation of pregnancy not specified
CPT/HCPCS: 81001; 87086; 87491; 87591; 99283; Q0111

== ENCOUNTER 2022-03-05 16:14 | Emergency (ER) | payer MEDICAID ==
[~2022-03-05] VITALS: Ht 167.6 cm; Wt 66.3 kg
[~2022-03-05 16:14] MED LIST changes: +NITR100C62 PO
[2022-03-05] MEDS ORDERED: diphenhydrAMINE 50 MG/ML VIAL IVP ONE (16:30)
[2022-03-05] MEDS ORDERED: IV NORMAL SALINE 1000ML BAG 1,000 ML IV ONE (16:30)
[2022-03-05] MEDS ORDERED: METOCLOPRAMIDE HCL 10 MG/2 ML VIAL. IVP ONE (16:30)
[2022-03-05 16:36] LABS: BASO # 0.1 x10^3/uL (0.0-0.2); BASO % 1 % (0-3); EOS # 0.1 x10^3/uL (0.0-0.7); EOS % 1 % (0-3); HEMATOCRIT 39.2 % (36.0-47.0); HEMOGLOBIN 13.4 g/dL (12.0-15.5); LYMPH # 2.3 x10^3/uL (1.0-4.8); LYMPH % 25 % (24-48); MEAN CORPUSCULAR HEMOGLOBIN 28 pg (25-35); MEAN CORPUSCULAR HGB CONC 34 g/dL (31-37); MEAN CORPUSCULAR VOLUME 82 fL (79-100); MONO # 0.6 x10^3/uL (0.0-1.1); MONO % 6 % (0-9); NEUT # 6.3 x10^3/uL (1.8-7.7); NEUT % 67 % (31-73); PLATELET COUNT 318 x10^3/uL (140-400); RED BLOOD COUNT 4.81 x10^6/uL (3.50-5.40); RED CELL DISTRIBUTION WIDTH 15.8 % (11.5-14.5); WHITE BLOOD COUNT 9.3 x10^3/uL (4.0-11.0)
[2022-03-05 16:44] LABS: CALCIUM 8.9 mg/dL (8.5-10.1); CREATININE 0.5 mg/dL (0.6-1.0); GFR 155.7; POTASSIUM 3.9 mmol/L (3.5-5.1)
[2022-03-05 16:52] LABS: ALBUMIN 3.7 g/dL (3.4-5.0); ALBUMIN/GLOBULIN RATIO 0.9 (1.0-1.7); TOTAL BILIRUBIN 0.3 mg/dL (0.2-1.0)
[2022-03-05 16:55] LABS: BACTERIA,URINE FEW /HPF (0-FEW); RBC,URINE 0 /HPF (0-2); WBC,URINE OCC /HPF (0-4)
[2022-03-05 17:39] VITALS: BP 119/73
[2022-03-05] MEDS ORDERED: METO10TA81 PO (17:46)
[2022-03-05] MEDS ORDERED: PNV1TABL25 PO (17:46)
--- NOTE | 2022-03-05 17:47 | PHYS DOC ---
Past Medical History Past Medical History: No Pertinent History, UTI Past Surgical History: Other Additional Past Surgical Histo: c section Smoking Status: Never Smoker Alcohol Use: None Drug Use: None General Adult EDM: Chief Complaint: ABDOMINAL PAIN IN HPI: HPI: Patient is a 21-year-old female who presents to the emergency department complaining of having nausea with vomiting x3 today, she was unable to go to work because of her nausea and is requesting a work excuse. Patient reports she had a bout of nausea when she woke up this morning, then again in the later morning time, and last vomiting episode was at 1 PM today. Patient noticed food particles and/or water and or yellow vomitus in her vomit, denies seeing blood in her vomitus. Patient reports she is , 2 para 1, has established OB care with Dr. Soto , Is 9 weeks 4 days with an approximate last menstrual period of December 26, her EDC is October 04, 2022. Patient denies abdominal pain, denies pelvic cramping or pain, denies vaginal discharge, denies rashes or lesions to her vaginal area, denies STI concerns stating she is in a monogamous relationship, patient reports she was seen here 4 days ago was started on a medication for urinary tract infection, patient was also given ODT Zofran which did not seem to help today. Patient did take her morning medication for her urinary tract infection although fears she may have vomited it up. Patient does not have your for her . Review of Systems: Review of Systems: 14 body systems of review of systems have been reviewed. See HPI for pertinent positives and negative responses, otherwise all other systems are negative, nonpertinent or noncontributory. Constitutional: Negative except as outlined in HPI above. Skin: Negative except as outlined in HPI above. Eyes: Negative except as outlined in HPI above. HENT: Negative except as outlined in HPI above. Respiratory: Negative except as outlined in HPI above. Cardiovascular: Negative except as outlined in HPI above. GI: Negative except as outlined in HPI above. : Negative except as outlined in HPI above. Musculoskeletal: Negative except as outlined in HPI above. Integument: Negative except as outlined in HPI above. Neurologic: Negative except as outlined in HPI above. Endocrine: Negative except as outlined in HPI above. Lymphatic: Negative except as outlined in HPI above. Psychiatric: Negative except as outlined in HPI above. Heart Score: C/O Chest Pain: No Risk Factors: Risk Factors: DM, Current or recent (<one month) smoker, HTN, HLP, family history of CAD, obesity. Risk Scores: Score 0 - 3: 2.5% MACE over next 6 weeks - Discharge Home Score 4 - 6: 20.3% MACE over next 6 weeks - Admit for Clinical Observation Score 7 - 10: 72.7% MACE over next 6 weeks - Early Invasive Strategies Current Medications: Current Medications Medications (Trade) Dose Ordered Sig/Kristine Start Time Stop Time Status Last Admin Dose Admin Diphenhydramine HCl (Benadryl) 25 mg 1X ONCE 03/05/22 16:30 03/05/22 16:31 DC 03/05/22 16:30 25 MG Metoclopramide HCl (Reglan Vial) 10 mg 1X ONCE 03/05/22 16:30 03/05/22 16:31 DC 03/05/22 16:30 10 MG Sodium Chloride 1,000 ml @ 1,000 mls/hr 1X ONCE 03/05/22 16:30 03/05/22 17:29 DC 03/05/22 16:30 1,000 MLS/HR Allergies: Allergies: Allergies Coded Allergies Type Severity Reaction Last Updated Verified No Known Drug Allergies 02/07/22 No Physical Exam: PE: Constitutional: Well developed, well nourished, no acute distress, non-toxic appearance. 21-year-old female in no apparent distress. HENT: Normocephalic, atraumatic. Eyes: Conjunctiva normal, no discharge. Neck: Normal range of motion, no stridor. Cardiovascular: No cyanosis appreciated, distal cap refill less than 2 seconds. Lungs & Thorax: Patient is in no respiratory distress, no audible adventitious lung sounds appreciated. Abdomen: Nontender, no abnormalities noted. Old well-healing scar present, abdomen is soft, quick bedside scan did reveal cardiac movement, 138 bpm. Skin: Warm, dry, no erythema, no rash. Back: No tenderness, no deformities. Extremities: No tenderness, no cyanosis, no clubbing, ROM intact, no edema. Neurologic: Alert and oriented X 3, normal motor function, normal sensory function, no focal deficits noted. Psychologic: Affect normal, judgement normal, mood normal. Current Patient Data: Labs: Laboratory Tests Test 03/05/22 16:26 03/05/22 16:30 03/05/22 16:42 White Blood Count 9.3 x10^3/uL Red Blood Count 4.81 x10^6/uL Hemoglobin 13.4 g/dL Hematocrit 39.2 % Mean Corpuscular Volume 82 fL Mean Corpuscular Hemoglobin 28 pg Mean Corpuscular Hemoglobin Concent 34 g/dL Red Cell Distribution Width 15.8 % Platelet Count 318 x10^3/uL Neutrophils (%) (Auto) 67 % Lymphocytes (%) (Auto) 25 % Monocytes (%) (Auto) 6 % Eosinophils (%) (Auto) 1 % Basophils (%) (Auto) 1 % Neutrophils # (Auto) 6.3 x10^3/uL Lymphocytes # (Auto) 2.3 x10^3/uL Monocytes # (Auto) 0.6 x10^3/uL Eosinophils # (Auto) 0.1 x10^3/uL Basophils # (Auto) 0.1 x10^3/uL Sodium Level 136 mmol/L Potassium Level 3.9 mmol/L Chloride Level 102 mmol/L Carbon Dioxide Level 23 mmol/L Anion Gap 11 Blood Urea Nitrogen 8 mg/dL Creatinine 0.5 mg/dL Estimated GFR (Cockcroft-Gault) 155.7 BUN/Creatinine Ratio 16 Glucose Level 95 mg/dL Calcium Level 8.9 mg/dL Total Bilirubin 0.3 mg/dL Aspartate Amino Transf (AST/SGOT) 23 U/L Alanine Aminotransferase (ALT/SGPT) 23 U/L Alkaline Phosphatase 81 U/L Total Protein 8.0 g/dL Albumin 3.7 g/dL Albumin/Globulin Ratio 0.9 Urine Collection Type Unknown Urine Color (Auto) Light yellow Urine Turbidity Clear Urine pH (Auto) 6.5 Urine Specific Conway 1.026 Urine Protein (Auto) Negative mg/dL Urine Glucose (Auto)(UA) Negative mg/dL Urine Ketones (Auto) Negative mg/dL Urine Blood (Auto) Negative Urine Nitrite Negative Urine Bilirubin (Auto) Negative Urine Urobilinogen (Auto) Normal mg/dL Urine Leukocyte Esterase (Auto) Negative Urine RBC 0 /HPF Urine WBC Occ /HPF Urine Squamous Epithelial Cells Mod /LPF Urine Bacteria Few /HPF Urine Mucus Mod /LPF Bedside Urine HCG, Qualitative Hcg positive Current Medications Medications (Trade) Dose Ordered Sig/Kristine Route PRN Reason Start Time Stop Time Status Last Admin Dose Admin Sodium Chloride 1,000 ml @ 1,000 mls/hr 1X ONCE IV 03/05/22 16:30 03/05/22 17:29 DC 03/05/22 16:30 1,000 MLS/HR Metoclopramide HCl (Reglan Vial) 10 mg 1X ONCE IVP 03/05/22 16:30 03/05/22 16:31 DC 03/05/22 16:30 10 MG Diphenhydramine HCl (Benadryl) 25 mg 1X ONCE IVP 03/05/22 16:30 03/05/22 16:31 DC 03/05/22 16:30 25 MG Laboratory Tests Test 03/05/22 16:26 03/05/22 16:30 03/05/22 16:42 White Blood Count 9.3 x10^3/uL (4.0-11.0) Red Blood Count 4.81 x10^6/uL (3.50-5.40) Hemoglobin 13.4 g/dL (12.0-15.5) Hematocrit 39.2 % (36.0-47.0) Mean Corpuscular Volume 82 fL (79-100) Mean Corpuscular Hemoglobin 28 pg (25-35) Mean Corpuscular Hemoglobin Concent 34 g/dL (31-37) Red Cell Distribution Width 15.8 % (11.5-14.5) H Platelet Count 318 x10^3/uL (140-400) Neutrophils (%) (Auto) 67 % (31-73) Lymphocytes (%) (Auto) 25 % (24-48) Monocytes (%) (Auto) 6 % (0-9) Eosinophils (%) (Auto) 1 % (0-3) Basophils (%) (Auto) 1 % (0-3) Neutrophils # (Auto) 6.3 x10^3/uL (1.8-7.7) Lymphocytes # (Auto) 2.3 x10^3/uL (1.0-4.8) Monocytes # (Auto) 0.6 x10^3/uL (0.0-1.1) Eosinophils # (Auto) 0.1 x10^3/uL (0.0-0.7) Basophils # (Auto) 0.1 x10^3/uL (0.0-0.2) Sodium Level 136 mmol/L (136-145) Potassium Level 3.9 mmol/L (3.5-5.1) Chloride Level 102 mmol/L (98-107) Carbon Dioxide Level 23 mmol/L (21-32) Anion Gap 11 (6-14) Blood Urea Nitrogen 8 mg/dL (7-20) Creatinine 0.5 mg/dL (0.6-1.0) L Estimated GFR (Cockcroft-Gault) 155.7 BUN/Creatinine Ratio 16 (6-20) Glucose Level 95 mg/dL (70-99) Calcium Level 8.9 mg/dL (8.5-10.1) Total Bilirubin 0.3 mg/dL (0.2-1.0) Aspartate Amino Transferase (AST) 23 U/L (15-37) Alanine Aminotransferase (ALT) 23 U/L (14-59) Alkaline Phosphatase 81 U/L (46-116) Total Protein 8.0 g/dL (6.4-8.2) Albumin 3.7 g/dL (3.4-5.0) Albumin/Globulin Ratio 0.9 (1.0-1.7) L Urine Collection Type Unknown Urine Color (Auto) Light yellow Urine Turbidity Clear Urine pH (Auto) 6.5 (<5.0-8.0) Urine Specific [place] 1.026 (1.000-1.030) Urine Protein (Auto) Negative mg/dL (Negative) Urine Glucose (Auto)(UA) Negative mg/dL (Negative) Urine Ketones (Auto) Negative mg/dL (Negative) Urine Blood (Auto) Negative (Negative) Urine Nitrite Negative (Negative) Urine Bilirubin (Auto) Negative (Negative) Urine Urobilinogen (Auto) Normal mg/dL (Normal) Urine Leukocyte Esterase (Auto) Negative (Negative) Urine RBC 0 /HPF (0-2) Urine WBC Occ /HPF (0-4) Urine Squamous Epithelial Cells Mod /LPF Urine Bacteria Few /HPF (0-FEW) Urine Mucus Mod /LPF POC Urine HCG, Qualitative Hcg positive (Negative) Laboratory Tests 03/05/22 16:26 Laboratory Tests 03/05/22 16:26 Vital Signs: Vital Signs Date Time Temp Pulse Resp B/P (MAP) Pulse Ox O2 Delivery O2 Flow Rate FiO2 03/05/22 16:25 99.5 85 20 141/86 (104) 98 99.5 EKG: EKG: [] Radiology/Procedures: Radiology/Procedures: [] Course & Med Decision Making: Course & Med Decision Making Pertinent Labs and Imaging studies reviewed. (See chart for details) 21-year-old female, vital signs reviewed, presents to the emergency department concerning nausea and vomiting x3 at home today, was unable to go to work. Patient is , physical examination is nonconcerning, will order urinalysis assay, CBC, CMP. The patient's urinalysis assay, CBC, CMP is nonconcerning, there is no evidence of preeclampsia, the patient's vital signs are within normal limits, a quick bedside scan did reveal satisfactory heart movement 138 bpm, the patient was given 1 L normal saline, 25 mg IV Benadryl, 10 mg IV Reglan for symptoms of nausea. The patient did not vomit during her ER stay, upon reevaluation of the patient she states she no longer has feelings of nausea and feels good now and wishes to go home. Patient main concern is obtaining a work excuse as she did not go to work today. Discussed with patient will give work excuse, strict follow-up with OB care physician Dr. Charles Jameson soon, return to ER precautions and concerns were reviewed, discussed with patient will prescribe Reglan, vitamin, discussed side effects of these medications, patient is amenable to ED discharge planning. The patient continues to deny abdominal pain, or abdominal cramping, or vaginal bleeding. Discussed with the patient all findings and diagnostic testing as well as the need to follow-up with their primary care provider for further evaluation and treatment or return to the ED if any new or worsening symptoms. Strict return precautions were also discussed at length, the patient voiced understanding and agreement with the discharge planning. The patient was nontoxic in appearance, in no apparent distress, and hemodynamically stable at the time of disposition. Dragon Disclaimer: Dragon Disclaimer: This electronic medical record was generated, in whole or in part, using a voice recognition dictation system. Departure Departure Impression: Primary Impression: Hyperemesis of Disposition: HOME / SELF CARE / HOMELESS Condition: GOOD Referrals: CADE RANDLE MD (PCP) Patient Instructions: ABCs of , Hyperemesis Gravidarum Additional Instructions: You were seen today in the emergency department for nausea and vomiting today. Your labs did not reveal any concerning findings that would warrant admission to the hospital, as we discussed I am adding an additional nausea medication that you may consider using for any returning nausea and vomiting. I am also prescribing you a vitamin, please keep all future appointments with your HADOOP ADMINISTRATOR Dr. Charles Abbasi. As we discussed, please return immediately to the emergency department for any vaginal bleeding, increased abdominal pain or pelvic pain, or other concerns. The medications prescribed to you are safe for your and safe for breast-feeding, thank you for visiting our Emergency Department. It was a pleasure taking care of you today in the emergency department and we appreciate you trusting us with your care. If any additional problems come up don't hesitate to return to visit us. Please follow up with your primary care provider so they can plan additional care if needed and know about the problem that you had. If symptoms worsen come back to the Emergency Department. Any concerning symptoms that start such as chest pain, shortness of air, weakness or numbness on one side of the body, running high fevers or any other concerning symptoms return to the ER. Scripts Metoclopramide Hcl (REGLAN) 10 Mg Tablet 1 TAB PO TID PRN PRN for NAUSEA for 30 Days, #30 TAB 0 Refills before food and bedtime Prov: SHARLENE JIMENEZ APRN 03/05/22 Pnv Cmb#95/Ferrous Fumarate/Fa ( TABLET) 1 Each Tablet 1 TAB PO DAILY for for 30 Days, #30 TAB 0 Refills Prov: SHARLENE JIMENEZ APRN 03/05/22 SHARLENE JIMENEZ APRN March 05, 2022 17:47
== END 2022-03-05 18:32 | disposition home or self-care (01) ==
LOC: ER 16:14
DX: O21.0 Mild hyperemesis gravidarum (principal); R10.9 Unspecified abdominal pain; Z3A.09 9 weeks gestation of pregnancy
CPT/HCPCS: 36415; 80053; 81001; 81025; 85025; 96361; 96374; 96375; 99284; J1200; J2765; J7030